=== PATIENT | male | born 1960 | race Caucasian/White ===

== ENCOUNTER 2019-02-26 07:55 | Outpatient (REF) | payer OTHER, SELFPAY ==
[2019-02-26 14:45] LABS: Anion Gap 12.8 mmol/L (3-11); BUN 18 mg/dL (7-18); CO2 24.2 mmol/L (21.0-32.0); CREATININE 0.78 mg/dL (0.70-1.30); Chloride 101 mmol/L (98-107); Glucose 106 mg/dL (70-100); Potassium 4.4 mmol/L (3.5-5.1); Sodium 138 mmol/L (136-145)
[2019-02-26 15:23] LABS: Calculated LDL 148; Cholesterol 210 mg/dL (50-200); HDL Cholesterol 46 mg/dL (40-60); Triglyceride 82 mg/dL (30-150)
== END 2019-02-26 08:15 ==
LOC: NCHCN 07:55
PROVIDERS: PCP Nurse Practitioner Family; Visit Provider Nurse Practitioner Family
DX: Z00.00 Encounter for general adult medical examination without abnormal findings (principal); Z13.220 Encounter for screening for lipoid disorders; Z13.228 Encounter for screening for other metabolic disorders
CPT/HCPCS: 80048; 80061; 83721

== ENCOUNTER 2020-01-06 09:16 | Outpatient (CLI) | payer OTHER, SELFPAY ==
--- NOTE | 2020-01-06 14:29 | DI.RAD_ITS ---
EXAM: XR KNEE LT 3V AP,LAT,LYNETTE CLINICAL HISTORY: KNEE PAIN LT, M25.562 TECHNIQUE: COMPARISON: No exams were available for comparison FINDINGS: Three views were obtained. There is an intramedullary shani with associated fixation screws in the fem ur. Alignment appears unchanged from 08/23/2017. There is moderate to severe narrowing of the carti laginous joint space of the lateral tibiofemoral joint and to a lesser degree the medial tibiofemoral joint. There are prominent marginal osteophytes at all 3 joints of the knee. There is subchondral sclerosis of the adjacent bones at the lateral tibiofemoral joint. IMPRESSION: DJD most marked involving lateral tibiofemoral joint where there is moderate to severe degenerative c hange. There is a probable small knee joint effusion.
== END 2020-01-06 09:36 ==
PROVIDERS: PCP Nurse Practitioner Family; Visit Provider Physician Assistant
DX: M25.562 Pain in left knee (principal); M17.12 Unilateral primary osteoarthritis, left knee; M25.462 Effusion, left knee
CPT/HCPCS: 73562

== ENCOUNTER 2020-01-23 10:44 | Outpatient (CLI) | payer OTHER, SELFPAY ==
--- NOTE | 2020-01-23 10:15 | DI.RAD_ITS ---
EXAM: XR FEMUR LT CLINICAL HISTORY: lt knee pain; s/p femoral nail 27 yrs ago TECHNIQUE: COMPARISON: CR XR KNEE LT 3V AP,LAT,LYNETTE from 01/06/2020 FINDINGS: Four views were obtained and show intramedullary shani in place in the femur. There is a healed mid fe moral fracture. Alignment appears essentially unchanged comparison with radiographs of the knee obta ined January 05. Moderate degenerative changes of the joints of the hip and knee are noted. IMPRESSION:
== END 2020-01-23 11:04 ==
PROVIDERS: PCP Nurse Practitioner Family; Visit Provider Physician Assistant
DX: M25.562 Pain in left knee (principal); M25.462 Effusion, left knee; M17.12 Unilateral primary osteoarthritis, left knee; M16.12 Unilateral primary osteoarthritis, left hip
CPT/HCPCS: 73552; 87070; 87205; 89051; 89060

== ENCOUNTER 2020-01-23 13:18 | Outpatient (REF) | payer OTHER, SELFPAY ==
[2020-01-23 14:11] LABS: Clarity CLEAR; Source L KNEE
[2020-01-23 14:13] LABS: Mononuclear Cells 97 % (0-0); Nucleated Cells 539 /MM3 (0-0); Polynuclear Cells 3 % (0-0)
== END 2020-01-23 13:38 ==
LOC: LBN 13:18
PROVIDERS: PCP Nurse Practitioner Family; Visit Provider Student in an Organized Health Care Education/Training Program
DX: M25.462 Effusion, left knee (principal)
CPT/HCPCS: 87070; 87205; 89051; 89060

== ENCOUNTER 2021-12-23 14:08 | Outpatient (CLI) | payer OTHER, SELFPAY ==
--- NOTE | 2021-12-23 12:00 | DI.RAD_ITS ---
Exam(s) XR KNEE LT 3V AP,LAT,LYNETTE EXAM: XR KNEE LT 3V AP,LAT,LYNETTE CLINICAL HISTORY: left knee pain, Effusion M25.462 TECHNIQUE: COMPARISON: CR XR KNEE LT 3V AP,LAT,LYNETTE from 01/06/2020 FINDINGS: Three views were obtained and show intramedullary fixation shani of the femur with [address]e distally. There is a small knee joint effusion. There is moderate to severe narrowing of medial and lateral tibiofemoral cartilaginous joint spaces. Moderate marginal osteophyte formation noted i nvolving all 3 joints of the knee. There appears to be mild medial subluxation of the femur on the t ibia. IMPRESSION: Moderate DJD of the knee. Small knee joint effusion. RADIATION DOSE DELIVERED: Total DLP
== END 2021-12-23 14:28 ==
LOC: DI 14:12
PROVIDERS: PCP Nurse Practitioner Family; Visit Provider Physician Assistant
DX: M25.462 Effusion, left knee (principal); M17.12 Unilateral primary osteoarthritis, left knee
CPT/HCPCS: 73562

== ENCOUNTER 2022-04-04 09:07 | Outpatient (CLI) | payer OTHER, SELFPAY ==
--- NOTE | 2022-04-04 08:45 | DI.RAD_ITS ---
Exam(s) XR STANDING ALIGNMENT EXAM: XR STANDING ALIGNMENT CLINICAL HISTORY: left knee DJD. TECHNIQUE: 2D digital imaging was performed. COMPARISON: CR XR FEMUR LT from 01/23/2020 FINDINGS: 3 views Long intramedullary shani in the left femur is noted transfixing healed midshaft fracture site. There are mild degenerative changes in the joints bilaterally. No hip fractures. Some degenerative change s noted in the left knee medial lateral compartments. Also mild medial subluxation of the left femor al condyles upon the tibial plateau. Similar findings are not seen in the opposite-right knee. Visualized ankles unremarkable. IMPRESSION: DATA REPOSITORY: RADIATION DOSE DELIVERED:
--- NOTE | 2022-04-04 08:45 | DI.RAD_ITS ---
Exam(s) XR KNEE LT 1V EXAM: XR KNEE LT 1V CLINICAL HISTORY: left knee DJD. TECHNIQUE: 2D digital imaging was performed. COMPARISON: CR XR KNEE LT 3V AP,LAT,LYNETTE from 12/23/2021 FINDINGS: Single lateral view Long intramedullary shani place distal aspect intercondylar region. Degenerative changes in the knee. IMPRESSION: DATA REPOSITORY: RADIATION DOSE DELIVERED:
== END 2022-04-04 09:08 | disposition home or self-care (01) ==
LOC: DIORS 09:07
PROVIDERS: PCP Nurse Practitioner Family; Referring Provider Nurse Practitioner Family; Visit Provider Physician Assistant
DX: M17.12 Unilateral primary osteoarthritis, left knee (principal)
CPT/HCPCS: 73560; 77073

== ENCOUNTER 2022-04-25 02:41 | Outpatient (CLI) | payer OTHER, SELFPAY ==
[2022-04-25 09:43] LABS: Anion Gap 10.8 mmol/L (3-11); BUN 13 mg/dL (7-18); CO2 29.2 mmol/L (21.0-32.0); CREATININE 1.1 mg/dL (0.70-1.30); Calcium 9.2 mg/dL (8.5-10.1); Chloride 96 mmol/L (98-107); Glucose 110 mg/dL (74-106); Sodium 136 mmol/L (136-145)
[2022-04-25 12:11] LABS: Source Nasal/Nares
[2022-04-25 12:35] LABS: HCT 46.9 % (40.0-50.0); HGB 16.4 g/dL (13.5-17.5); MCH 33.7 pg (27.0-33.0); MCV 96 fL (80-95); MPV 9.2 fL (8.0-11.0); Platelet Count 234 10^3/uL (130-400); RBC 4.87 10^6/uL (4.36-5.78); RDW 11.5 % (11.8-14.1); RDW-SD 41.1 fL; WBC 5.61 10^3/uL (4.4-10.8)
[2022-04-25 18:52] LABS: COVID-19 PCR Negative (Negative)
== END 2022-04-25 02:42 | disposition home or self-care (01) ==
LOC: LBO 02:41
PROVIDERS: PCP Nurse Practitioner Family; Visit Provider Student in an Organized Health Care Education/Training Program
DX: M25.562 Pain in left knee (principal); M17.12 Unilateral primary osteoarthritis, left knee; Z20.822 Contact with and (suspected) exposure to COVID-19; Z01.818 Encounter for other preprocedural examination; Z01.812 Encounter for preprocedural laboratory examination
CPT/HCPCS: 36415; 80048; 85027; 86850; 86900; 86901; 87635

== ENCOUNTER 2022-04-27 06:30 | Observation (INO) | payer OTHER, SELFPAY ==
[2022-04-27] VITALS (17 sets, daily range): BP systolic 85–135; BP diastolic 50–86; PULSE 49–65; RESP 16–27; TEMP 35.5–36.9; O2SAT 92–98; BMI 28.9
--- NOTE | 2022-04-27 06:41 | W.ANESPRE ---
General Info Date of Service Date Performed: 04/27/22 Height: 5 ft 8 in Weight: 86.268 kg Body Mass Index (BMI): 28.9 Surgical Procedure: Operation Date: 04/27/22 11:40 Proposed Procedure Side Surgeon p Knee Total Arthroplasty OrthAlign Left Jens Gregg MD s Hardware Removal of Femur Left Jens Gregg MD Meds Allergies and Home Medications Allergies Allergy/AdvReac Type Severity Reaction Status Date / Time tramadol Allergy Skin Rash Verified 04/27/22 09:03 kiwi Allergy Unknown per Uncoded 04/27/22 09:03 pt.throat feels funny Home Medication Medication Instructions Recorded antiarthritic combination no.2 900 900 mg PO DAILY 01/05/22 mg tablet (glucosamine-chondroitin) cholecalciferol (vitamin D3) 10 10 mcg PO DAILY 01/05/22 mcg (400 unit) capsule magnesium oxide 400 mg PO DAILY 01/05/22 omega 1-vbd-voc-fish oil 300 1 cap PO DAILY 01/05/22 mg-1,000 mg capsule turmeric 400 mg capsule 400 mg PO DAILY 01/05/22 vitamin B complex (B 1 tab PO DAILY 01/05/22 Complex-Vitamin B12 tablet) milk thistle 150 mg capsule 300 mg PO DAILY 01/12/22 phytonadione (vitamin K1) 5 mg 5 mg PO DAILY 01/12/22 tablet lidocaine 4 % topical patch 1 patch topical DIRECTED 04/26/22 (Lidocaine Pain Relief) melatonin 12 mg disintegrating 12 mg PO HS 04/27/22 tablet Current Visit Medications: Current Medications Generic Name Dose Route Start Last Admin Trade Name Beatriz PRN Reason Stop Dose Admin Acetaminophen 1,000 mg 04/27/22 06:00 Acetaminophen 500 Mg Tab PO PREOP ISIDRO Celecoxib 400 mg 04/27/22 06:00 Celecoxib 200 Mg Cap PO PREOP ISIDRO Gabapentin 300 mg 04/27/22 06:00 Gabapentin 300 Mg Cap PO PREOP ISIDRO Tranexamic Acid 1,000 mg/ 60 mls @ 360 mls/hr 04/27/22 06:00 Sodium Chloride IVPB 04/27/22 16:00 PREOP ISIDRO Ringer's Solution 1,000 mls @ 80 mls/hr 04/27/22 06:00 IV 05/26/22 23:59 INFUSION ISIDRO Cefazolin Sodium/Dextrose 2 gm in 50 mls @ 100 mls/hr 04/27/22 06:00 Ancef Duplex IVPB 05/26/22 23:59 PREOP ISIDRO IV Miscellaneous Supplies 1 each 04/27/22 06:00 Iv Access IV 05/26/22 23:59 DIRECTED ISIDRO Sodium Chloride 0 ml 04/27/22 06:00 Normal Saline Flush 10 Ml Syr IV 05/26/22 23:59 PRN PRN Sodium Chloride 0 ml 04/27/22 06:00 Normal Saline 10 Ml Vial IJ 05/26/22 23:59 DIRECTED PRN Sterile Water 0 ml 04/27/22 06:00 Water,Injection,Sterile 10 Ml Vial IJ 05/26/22 23:59 DIRECTED PRN PFSH Active Problems Active Problems: Problem Status Onset Code Left knee DJD M17.12 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 Effusion, left knee M25.462 Medical History Medical History Biceps tendon tear Hyperlipidemia Surgical History Surgical History Hx of elbow surgery Status post fracture of femur ~27 years ago Intramedullary shani Tobacco Smoking/Tobacco Use Status: Former Tobacco Use Substance Use Substance use: Daily Substance use type: marijuana Vital Signs and Lab Results Vital Signs Most Recent Vital Signs in EMR: Temp Pulse Resp BP Pulse Ox 36.9 C 60 18 135/86 96 04/27/22 08:46 04/27/22 08:46 04/27/22 08:46 04/27/22 08:46 04/27/22 08:46 Lab Results Blood Type / Crossmatch: Patient ABO/Rh O Positive 04/25/22 Antibody Screen NEGATIVE 04/25/22 Complete Blood Count: White Blood Count 5.61 10^3/uL (4.4-10.8) 04/25/22 09:21 Red Blood Count 4.87 10^6/uL (4.36-5.78) 04/25/22 09:21 Hemoglobin 16.4 g/dL (13.5-17.5) 04/25/22 09:21 Hematocrit 46.9 % (40.0-50.0) 04/25/22 09:21 Platelet Count 234 10^3/uL (130-400) 04/25/22 09:21 Complete Metabolic Panel: Sodium Level 136 mmol/L (136-145) 04/25/22 09:21 Potassium Level 4.0 mmol/L (3.5-5.1) 04/25/22 09:21 Chloride Level 96 mmol/L (98-107) L 04/25/22 09:21 Carbon Dioxide Level 29.2 mmol/L (21.0-32.0) 04/25/22 09:21 Blood Urea Nitrogen 13 mg/dL (7-18) 04/25/22 09:21 Creatinine 1.1 mg/dL (0.70-1.30) 04/25/22 09:21 Estimated GFR/1.73 m2 >= 60.00 (mL/min/1.73m2) 04/25/22 09:21 Calcium Level 9.2 mg/dL (8.5-10.1) 04/25/22 09:21 Glucose Level 110 mg/dL (74-106) H 04/25/22 09:21 Liver Function Panel: No Data to Display Coagulation Panel: No Data to Display Cardiac Panel: No Data to Display Arterial Blood Gas: No Data to Display Venous Blood Gas: No Data to Display Pancreas Panel: No Data to Display Thyroid Panel: No Data to Display Infectious Disease: Coronavirus (COVID-19)(PCR) Negative (Negative) 04/25/22 09:35 Coronavirus 2019 Source Nasal/Nares 04/25/22 09:35 Blood Cultures: No Data to Display Toxicology Panel: No Data to Display Anesthesia Assessment and Plan Anesthesia History Personal History: No History of Anesthesia Complications Family History: No Family History of Anesthesia Complications Exercise Tolerance Exercise Tolerance: Metabolic Equivalents>4 Cardiac & Pulmonary Exam Cardiac Exam: Normal S1/S2 Heart Sounds Pulmonary Exam: Clear Bilateral Breath Sounds Implantable Cardiac Device Does patient have a Pacemaker or an ICD?: No Airway Exam Known Difficult Airway: No Mallampati Class: 3 Mouth Opening: Narrow (< 3cm) Thyromental Distance: Greater than 3 cm Neck Range of Motion: Full ROM Neck Circumference: Normal Teeth Condition: Normal Dentition ASA Classification ASA Score: ASA 2 Emergency Case?: No NPO Status NPO Status: NPO Clears >2 hours, Solids >8 hours Anesthesia Plan Resuscitation Status: Full Code Anesthesia Technique: General Anesthesia Airway Planned: Endotracheal Tube Pain Management: Surgeon and patient request nerve block Monitors Used: Standard Monitors Preoperative Comments:: 62 yo male for femur screw/shani removal and total knee left. Sig PMHx: former smoker (1979), cannabis, denies major. Lateral for femur removal then supine for TKA. Discussed risks, benefits, and alternatives of spinal vs general, plan GAETT with adductor canal block.
[2022-04-27] MEDS: Lactated Ringers 1,000 ML 80 ML IV (09:31)
[2022-04-27] MEDS: Celecoxib 200 MG CAP 400 MG PO (09:55)
[2022-04-27] MEDS: Acetaminophen 500 MG TAB 1000 MG PO ×2 (09:56→19:45)
[2022-04-27] MEDS: Gabapentin 300 MG CAP PO ×2 (09:56→22:28)
--- NOTE | 2022-04-27 11:11 | W.ANESNERVE ---
Nerve Block Single Injection Procedure Date and Time Date Performed: 04/27/22 Procedure Start: 11:05 Location Where Procedure Performed Procedure Location: Day Surgery Unit Reason Performed: Postoperative Analgesia Requesting Provider: Jens Gregg Timeout Performed Timeout Performed: Yes Monitoring Used ECG, Blood Pressure and SpO2 Sterility Sterility: Hand Hygiene, Surgical Cap, Surgical Mask, Sterile Gloves and Chlorhexidine Sedation Given During Procedure Sedation Given (Indicate Dose Given): Versed IV Dose:: 2 mg Patient Mental Status Patient Mental Status: Awake Nerve Block 1st Nerve Block: Laterality: Left Block Type: Adductor Canal Needle / Catheter Used: 100mm SonoPlex II Local Anesthetic Bolus (Indicate Dose Given): Lidocaine used for local infiltration of skin and Bupivacaine 0.375% Dose:: 10 mL Additives (Indicate Dose Given): None Ultrasound: Sterile probe cover and gel used Ultrasound Image Saved?: Yes Nerve Stimulator: Not Used Paresthesia: None Procedure Tolerated: No Complications Procedure Outcome: Successful Performed By: Vasu Wood
[2022-04-27] MEDS: ceFAZolin 2 GM/50 ML BAG IVPB (11:28)
--- NOTE | 2022-04-27 13:36 | DI.RAD_ITS ---
Exam(s) XR FEMUR LT EXAM: XR FEMUR LT CLINICAL HISTORY: DJD LEFT KNEE, S/P LEFT FEMORAL CA TECHNIQUE: 2D and realtime digital imaging was performed. COMPARISON: No exams were available for comparison FINDINGS: C-arm fluoroscopy was utilized by Dr. Gregg. Please see Dr. Gregg procedure note. IMPRESSION: RADIATION DOSE DELIVERED: blair Pacheco=16.25 mGy
[2022-04-27] MEDS: Tranexamic Acid 1,000 MG/10 ML VIAL 1000 MG (14:00)
[2022-04-27] MEDS: ePHEDrine 25 MG/5 ML Syringe IVP ×2 (16:23→16:34)
--- NOTE | 2022-04-27 17:18 | W.ANESPOSTOP ---
Postoperative Evaluation Date, Time and Location Date Performed: 04/27/22 Time Performed: 17:18 Patient Location: PACU Vital Signs Most Recent Imported Vital Signs: Most Recent Vital Signs Temp Pulse Resp BP Pulse Ox 36.4 C L 59 L 26 H 126/54 L 97 04/27/22 17:15 04/27/22 17:15 04/27/22 17:15 04/27/22 17:15 04/27/22 17:15 Pain Score Most Recent Pain Score: Most Recent Pain Score Pain Level 0 04/27/22 17:15 Assessment Mental Status: Arousable with meaningful communication Airway and Respiratory Function: Patent airway with normal (patient baseline) respiratory exam Cardiovascular Function: Hemodynamically Stable Hydration Status: Adequately Hydrated Nausea & Vomiting: No Nausea or Vomiting Pain: Pain is tolerable per patient Peripheral Nerve Block: Regional nerve block not resolved at time of post operative discharge
[2022-04-27] MEDS: ceFAZolin 1 GM/50 ML BAG IVPB (18:17)
[2022-04-27] MEDS: Aspirin E.C. 81 MG TABEC PO (19:44)
[2022-04-27] MEDS: Celecoxib 200 MG CAP PO (19:46)
--- NOTE | 2022-04-27 20:17 | ROE_ITS ---
Date of service: 04/27/22 Time of Service: 15:30 Operative Note Operative Note DATE OF PROCEDURE: 04/27/22 PRE-OP DIAGNOSIS: Left knee posttraumatic arthritis, retained hardware left femur POST-OP DIAGNOSIS: same PROCEDURE: Left Total Knee Replacement with Intraoperative Navigation, attempted hardware removal left femur SURGEON: Jens Gregg FRAME STRIPPER AND CRUSHER: Marbella Sebastian ANESTHESIA TYPE: General LMA/ETT and Spinal Refer to Anesthesia Record ESTIMATED BLOOD LOSS: 250 PATHOLOGY: none sent TOURNIQUET TIME: 0 COMPLICATIONS: None Patient was transported to: PACU Patient's condition: stable Implants: 1. Depuy Attune Cementless Cruciate Retaining Femoral Component, Size 6 2. Depuy Attune Cemented Rotating Platform Tibial Component, Size 5 3. Depuy Attune 6x10 CR/RP Poly 4. Depuy Attune Patellar Component, Size 38 Indications: I have seen Manoj in clinic for symptoms of LEFT knee arthritis, confirmed with radiographic findings. Manoj has exhausted nonoperative methods and was having significant limitations in daily function and desired better function and less pain. I discussed the technical details of a knee replacement. This was complicated by the very distal location of his femoral nail. This femoral nail was placed more than 30 years ago and was determined to be a [employer] femoral nail. Based on calculations on the computer the tip of the nail was going to interact with the femoral cut and therefore would need to be removed. I explained the risks of the procedure to include, but not limited to, bleeding, infection, pain, stiffness, fracture, damage to nerves and vessels, damage to muscles and tendons, loosening, need for repeat procedure, blood clot and cardiopulmonary demise. Despite these risks, Manoj elected to proceed. Findings: I was able to engage the top of the nail with the extraction device and remove the distal interlocking screws without difficulty. The top of the femoral nail was cleared of any debris and was able to be extracted approximately 1-1/2 cm. However, it then stopped. Multiple attempts using different techniques and tools were utilized to attempt extraction of the nail. However, it was unsuccessful. I was unable to advance the nail distally or move it proximally. It was sitting just proximal to the tip of the greater trochanter but was not impinging on the overlying abductor muscles. Therefore, I left the nail in this location and close the hip and proceed to the knee replacement. Within the knee, there was significant signs of arthritis throughout. Procedure Description: Manoj was greeted in the preoperative holding area where the correct side was identified and marked. The consent was reviewed with the patient and signed. The history and physical was updated. All questions were answered. Preoperative medications were administered: Acetaminophen 1000mg, Celebrex 400mg, and Gabapentin 300mg. An adductor canal block was then administered by the anesthesia team in the PACU. Ernesto was taken back to the operating room. A general anesthestic was then administered. He was then positioned onto the right lateral decubitus position. He was secu red in this position with hip positioners attached to the bed. All bony prominences well-padded including style leg and bilateral arms. In this position we had access to the lateral aspect of the proximal femur and hip. The left leg was then prepped with ChloraPrep and draped in a standard fashion. A timeout to confirm correct identity, side and site, procedure, allergies, anesthesia, and medical concerns was performed. Utilizing fluoroscopy I marked the location of the distal screws and also confirmed appropriate starting point for access to the nail. I did not use his previous incision which was quite posterior. Starting at the level of the hip, I made a 5 cm incision just proximal to the tip of the greater trochanter. The skin was incised sharply followed by the gluteus fascia. The muscles of the abductor tendons were split bluntly leaving them attached to the distal greater trochanter. Through the split I was able to palpate what appeared to be the nail edge. Using a rongeur and osteotome I was able to free off some soft tissue/is able to palpate metal. I then inserted the [employer] distractor system into the top of the nail. Using fluoroscopy I was able to lined this up appropriately in 2 planes and then advanced the screw threads into the top of the nail. This got excellent purchase into the top of the knee also shows rotating the entire leg. I then worked distally removing the 2 interlocking screws without difficulty. At this point, I attached the extraction system completely and started doing back slaps to remove the nail. The nail advanced about 1 to 1-1/2 cm with some moderate effort. However, after this initial gain the nail stopped moving. Fluoroscopy was utilized to evaluate for any potential areas of hold against the nail. The nail was palpable proximally and therefore there is no soft tissue or bony impingement proximally. There is no remaining screws. There was significant narrowing of his femur from the level of the fracture moving proximally. I also utilized a vice disposition clerk with a backslapping device as well as a heavy mallet. Despite these attempts, the nail would not move. Given the risk of fracture I then attempted to advance the nail distally trying to free up any attachments or at least make some more room. However, it would not advance distally. Once again, with concern for fracture at this point I aborted nail extraction. The left hip was thoroughly irrigated. The soft tissues were injected with a mixture of the RE CK cocktail. The gluteus fascia was closed with a #1 Vicryl. The deep tissues were closed with 2-0 and 0 Vicryl followed by 4-0 Monocryl at the skin. This was further reinforced with skin glue, Steri-Strips, and a Mepilex dressing. The distal incisions were also closed with 2-0 Vicryl followed by subcuticular Monocryl, skin glue. The advancement of the nail 1 to 1-1/2 cm providedthat I was confident the knee replacement would be unhindered. Therefore, we continued with a knee replacement at this time. Drapes and equipment were taken down from this position. He was then placed into the supine position on the operating room table. All bony prominences were well padded. Prophylactic antibiotics in the form of Cefazolin were administered. 1g of Tranxemic Acid was given intravenously within 30 minutes of incision. The left leg was then prepped with Chloraprep and draped in a standard fashion with impervious stockinette. A second prep with Chloraprep was performed prior to application of Iodine impregnated skin protection. With the knee in some flexion, a midline incision was made overlying the knee. Full thickness skin flaps were raised once the extensor mechanism was encountered. These were raised medially and laterally. Any bleeding was controlled with electrocautery. Once the extensor mechanism was fully exposed, a medial parapatellar arthrotomy was performed in a flexed position. All bleeding from the arthrotomy and the geniculate arteries was coagulated. A medial subperiosteal peel was performed with electrocautery to the midcoronal plane. Due to the significant varus deformity the entire medial tibial plateau was exposed. The fat pad was removed while keeping the patellar tendon protected. The anterior distal femur synovium was removed for later visualization. The ACL and PCL were resected and the anterior horn of the lateral meniscus was transected. The knee was then flexed with the patella everted. Large osteophytes from the tibia were removed. Large osteophytes from the femur were removed. There was some hypoplasia of the lateral femoral condyle and any remnant cartilage of the medial femoral condyle was removed for appropriate thickness. A single starting pin was then placed 1cm anterior to the PCL insertion and the notch in the direction of the femoral head. The OrthoAlign device was applied over the pin. It was oriented to be in line with the epicondylar axis and the trochlear groove. It was then pinned into place. The navigation computer was then turned on and calibrated. The distal femur cut was set at 0 degrees varus/valgus and 2.5 degrees flexion. The distal femur cutting guide then was positioned for a 9mm cut. The distal femur was cut with an oscillating saw while protecting the soft tissues. The tibia was then addressed. The OrthoAlign device was placed over the tibial tubercle and medial tibia and secured into position. Once again, OrthoAlign was calibrated and then set for a 1 degree varus cut and 5 degrees of posterior slope. With this locked into position, the cut thickness stylus was used to assess cut thickness. The medial side, most involved side, was set for a 4mm cut. This was then held in position and pinned into place with 2 additional pins and a cross pin for stability. The medial and lateral collateral ligaments were protected and the cut was performed. With this completed, it was assessed and noted to be of appropriate dimensions. The guide and OrthoAlign was removed. A spacer block was inserted and the knee was brought into extension. The 8mm spacer block provided full extension, without hyperextension and with stability of both the medial and lateral collateral ligaments was assessed. The pins from the femur and the tibia were then removed. The distal femur was then sized. The anterior stylus was placed onto the lateral ridge of the anterior femur. This indicated a size 6 femur. The external rotation of the guide was adjusted to 0 degrees to match the epicondylar axis, perpendicular to Francesca?s line. The 4-in-1 cutting guide was the placed. The posterior medial femur cut was evaluated and appeared of good thickness. The spacer block was inserted underneath the cutting guide and stability was confirmed in 90 degrees of flexion. An andriy wing was used to confirm appropriate position of the anterior cut to avoid notching. This cutting guide was ensured to be flush on the cut surface and then pinned into place with headed pins. While protecting the soft tissues, quad tendon, and collateral ligaments, the anterior and posterior cuts were performed with a saw. The central two pins were removed and the posterior and anterior chamfers were cut next. The notch-cutting guide was placed. This was pinned to lateralize the femoral component as much as possible while keeping it flush on the cut surface. This was then pinned into position. A reciprocating saw was used to make the notch cut. A rasp smoothed the cut surfaces. The medial and lateral menisci were removed. A trial femoral component was then inserted, impacted down to the cut surfaces, and the lug holes were drilled. A provisional trial tibial component was placed and the knee was brought through range of motion. The polyethylene was trialed until there was good flexion and extension with excellent stability to the medial and lateral collaterals. The patella was tracking without thumbs. A size 10mm polyethylene component provided the best range of motion and stability with less than 2mm gapping with medial and lateral stress and full extension without significant hyperextension. The tibial cut surface was fully exposed. The tibia was then sized as a 5. The tibia had been previously marked during trialing to correspond to the center of the tibial component to help with rotation. The trial was aligned to this jn, approximately rotated to the medial 1/3rd of the tibial tubercle. The trial was pinned into place. The tibia was prepared with a reamer and a keel punch and lug holes. The knee was then brought into extension and the patella was measured as 28mm. Using the patellar clamp and cut guide, this was resected to a flat surface with at least 13mm of thickness remaining. The size 38 patella fit the best. This was oriented and then clamped into position. The lugs were drilled. The trial components were removed. The final components were opened on the back table. The periosteal and capsular tissues, especially posteriorly, around the knee were then systematically injected with a periarticular cocktail consisting of 246mg of Ropivacaine, 0.5mg of Epinephrine, 0.08mg of Clonidine, and 30mg of Ketorolac, diluted to 100cc. On the back table, with the implants opened, the cement was mixed. One batch of high viscosity cement was prepared with vacuum assistance. After the cement was ready a small amount was placed on the cut surface of the patella and the patellar button was clamped into position and held. While the cement was hardening, the cementless knee components were placed. Starting with the tibial component, the tibia was subluxed anteriorly and the lug holes of the component were lined up. The tibia was then impacted with an impactor and mallet until the tibial component was in contact with the tibia. The bone appeared quite good throughout the case with the tibial bone seem to be more porous than the femoral bone. On insertion of the tibial component the tibial component compressed into the bone about 1 mm. It did not have excellent purchase and I was able to mobilize the component. Therefore, it was removed and converted to a cemented. A cementless size 5 implant was opened on the back table and another batch of medium viscosity cement was mixed. Once this was ready for application it was coated on the backside of the tibial component and on the ti bial cut surface. This tibial component was then inserted in appropriate position and excess cement was removed. The final polyethylene component was inserted. Then, the femoral component was inserted. The lug holes were aligned and the component was impacted into position. The knee was irrigated with Surgiphor Betadine solution. This was allowed to sit in the knee for 3 minutes and then it was thoroughly irrigated out with saline. After the cement had finally cured, approximately 15min, the clamp was removed from the patella and the knee was taken through range of motion. The patella was tracking with a no-thumbs technique. The capsule was then reapproximated with a No. 1 Vicryl at multiple locations. The capsule was finally closed with a No. 2 Stratafix, barbed suture. Deep tissues were then reapproximated with 0 Vicryl and 2-0 Vicryl. The skin was closed with a running 3-0 Monocryl in a subcuticular fashion. This was reinforced with skin glue. A Mepilex silver dressing was applied along with a [id number] MICHELA wrap. A CryoCuff was applied. Manoj was transferred to the hospital bed without difficulty an suffering no apparent complication. Manoj has a good prognosis. Physical therapy will start today and without restrictions, weight-bearing as tolerated. Aspirin 81mg BID will be used for DVT prophylaxis.
[2022-04-27] MEDS: Melatonin 3 MG TAB 12 MG PO (22:28)
[2022-04-28 00:31] VITALS: BP 107/68; PULSE 65; RESP 16; TEMP 35.9; O2SAT 99
[2022-04-28] MEDS: ceFAZolin 1 GM/50 ML BAG IVPB ×2 (01:30→10:13)
[2022-04-28 06:39] VITALS: BP 101/63; PULSE 77; RESP 16; TEMP 35.6; O2SAT 98
[2022-04-28] MEDS: oxyCODONE 5 MG TAB PO ×2 (06:41→10:27)
[2022-04-28 08:25] VITALS: BP 108/71; PULSE 55; RESP 16; TEMP 35.7
[2022-04-28] MEDS: Celecoxib 200 MG CAP PO (08:27)
[2022-04-28] MEDS: Acetaminophen 500 MG TAB 1000 MG PO (08:29)
[2022-04-28] MEDS: Pantoprazole 40 MG TABCR PO (08:29)
[2022-04-28] MEDS: Aspirin E.C. 81 MG TABEC PO (08:29)
--- NOTE | 2022-04-28 08:40 | PT.INIE ---
Date of service: 04/28/22 Time of Service: 08:40 PT Notes Visit Reasons: Left Femur Removal Of Hardware and Left TKA Physical Therapy Inpatient Initial Evaluation Date: 04/28/2022 Referring Doctor: SCOTT Aden PT Orders: PT CONSULT: S/p Ortho surgery Precautions: WBAT on L LE with AD. Patient Profile/Admitting Diagnosis: Derrick is a 62-year-old male with past medical history significant for L knee posttraumatic arthritis, S/P left femoral nail fixation 27 years ago and MCL injury in 2017 who is status post left total knee arthroplasty with attempted IM hardware removal from the left femur on postoperative day 1. PMHX: All Active Problems?(Updated 01/12/22 @ 15:10 by SCOTT Watson) Effusion, left knee (Acute) Aspiration and injection: 01/23/20 Internal derangement of left knee (Acute) Left knee DJD (Chronic) Steroid injection: 01/12/2022 Aspiration and injection: 01/23/20 Medical History?(Updated 01/12/22 @ 15:10 by SCOTT Watson) Hyperlipidemia Surgical History? Status post fracture of femur ~27 years ago Intramedullary shani Social History/Home Situation: Lives with in a private home with no steps to enter. Bedroom is on the second floor however he states that he can manage on the min floor if he needs to. Independent with all aspects of ADLs prior to surgery. 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 Equipment Owned/DME: [employer] Subjective: Agreeable to PT consult. States that he walked to his bedside chair with nursing staff using his walker early this morning with minimal pain, his left hip hurting more than his L knee. Denies chest pain, headache, and lightheadedness throughout. Okay with walking despite not having had any breakfast yet. Objective: General Observation: Seated on bedside chair. MICHELA wraps to Mental Status: Alert and oriented as to person, place, time, and purpose. Able to pay attention, focus, and respond appropriately. Pain: 5-6/10 in L hip, minimal on the L knee at 3-4/10 Vital Signs: WNL as closley monitored by nursing staff ROM: Right Lower Extremity: Hip flexion WFL. Hip abduction WFL. Knee flexion WFL. Ankle dorsiflexion WFL. Ankle plantarflexion WFL. Left Lower Extremity: Hip flexion WFL. Hip abduction WFL. Knee flexion 10 degrees to 110 degrees. Knee extension -10 degrees. Ankle dorsiflexion WFL. Ankle plantarflexion WFL. Strength: Right Lower Extremity: Hip flexors 5/5. Hip abductors 5/5. Knee flexors 5/5. Knee extensors 5/5. Ankle dorsiflexors 5/5. Ankle plantarflexors 5/5. Left Lower Extremity: Hip flexors 4-/5. Hip abductors 4-/5. Knee flexors 3-/5. Knee extensors 3-/5. Ankle dorsiflexors 4/5. Ankle plantarflexors 4/5. Sensation: Intact as to pain adn light pressure in B LE Bed Mobility/Transfers: Sit to stand supervision using FWW Stand to sit supervision using FWW Bed to reclining chair supervision using FWW Reclining chair to bed supervision using FWW Gait: Instructed patient with level surface ambulation of 450 feet with FWW requiring stand by assist with step-to gait pattern. Gait antalgic. Pain subsided with rest. Balance: Static Sitting: Normal Dynamic Sitting: Normal Static Standing: Fair Dynamic Standing: Fair Special Tests: Mobility Limitations Standardized Measure [facility] 6 clicks Basic Mobility Inpatient Short Form: Raw Score: 23 CMS Score: 11% deficit Informed Consent/Education: Patient was instructed in purpose of PT consult and plan of care. Agreeable to proceed with established PT POC to achieve personal goals. Assessment: Patient is able to perform bed mobility, transfers, and ambulation with FWW with stand by assist only. Patient presents with clinical signs and symptoms consistent with current/admitting diagnoses that have resulted to mobility limitations as demonstrated by the following impairment level findings: 1. Decreased strength to L hip and knee major muscle groups 2. Impaired standing balance 3. Impaired activity tolerance 4. Limitation of joint range of motion in L knee Impairments are contributing to the following functional limitations: 1. Difficulty with ambulation without assistive device 2. Increased completion time for mobility ADL performance Patient is assessed as a [id number] mdoerate complexity based on the following: History: 62-year-old male with past medical history as indicated above Examination: Demonstrable impairment in strength, balance, and mobility level with underlying impairments and functional limitations as exhibited above as well as deficit score of 11% utilizing the [facility] Mobility Inpatient Short Form Presentation: Evolving Decision Makin moderate complexity Goals: Goals X1 week 1. Supine-Sit independent 2. Sit-Supine independent 3. Sit-Stand independent 4. Stand-Sit independent with FWW 5. Bed-Chair independent with FWW 6. Chair-Bed independent with FWW 7. Independent gait on level surface with use of FWW for at least 500 feet without report of pain nor dyspnea 8. Independent with home exercise program 9. Good static and dynamic standing balance/tolerance Plan of Care/Treatment Plan: 1-2x/day, 7 days/week x 1 week. Plan of care has been reviewed with the ENERGY EFFICIENT SITE MANAGER providing the service under Physical Therapy direction. Initiate Physical Therapy intervention for pain management as needed, strengthening, bed mobility, transfers, gait, stairs, balance training, and use of assistive device. DISCHARGE RECOMMENDATIONS: [] Home with no services [] [] Home with services [specify] [X] Home with outpatient PT. Home when medically cleared by orthopedic surgeon. Patient will benefit from outpatient PT services in order to maximize functional outcomes and regain independent community ambulation without an assistive device. [] SNF for continued rehabilitation [] [] [facility] [] [] SNF versus LTC based on ability to participate and progress [] TREATMENT CODE/TIME: 14972 x 15 minutes, 71269 x 14 minutes beginning at 8:40 AM. Thank you for the opportunity to participate in the care of this patient. Loraine Esparza PT, DPT, CLT [facility] [place], [place]
--- NOTE | 2022-04-28 09:08 | W.PM.DS.N ---
Date of service: 04/28/22 Time of Service: 07:30 DS: Diagnosis Discharge Diagnosis (1) Left knee DJD: Status: Chronic Discharge Plan Disposition Patient Disposition: HOME Condition: Good Discharge Details Reason For Visit: Left Femur Removal Of Hardware and Left TKA Admit Date/Time: 04/27/22 06:30 Admit Provider: Jens Gregg Attending Provider: Jens Gregg Primary Care Provider: Yaritza Daily Hospital Course Hospital Course: Patient was admitted to the medical/surgical floor following the procedure. The surgery was tolerated well without any notable medical, surgical, or anesthetic complications. Mobilization began postoperatively. He was voiding spontaneously. Vitals were stable. Physical therapy worked with the patient and was cleared for discharge home. No acute medical issues. Pain was controlled on oral regimen. Home Meds and New Rx's Prescriptions: New celecoxib 200 mg capsule 200 mg PO BID PRN (Reason: pain) Qty: 60 1RF aspirin 81 mg tablet,delayed release (DR/EC) 81 mg PO BID Qty: 60 0RF acetaminophen 500 mg tablet 1,000 mg PO Q8H PRN (Reason: pain) Qty: 90 3RF pantoprazole 40 mg tablet,delayed release (DR/EC) 40 mg PO DAILY Qty: 30 0RF gabapentin 300 mg capsule 300 mg PO QHS Qty: 14 0RF oxycodone 5 mg tablet 5 mg PO Q4H Qty: 18 0RF Continued phytonadione (vitamin K1) 5 mg tablet 5 mg PO DAILY milk thistle 150 mg capsule 300 mg PO DAILY Rx Instructions: give with meal/snack cholecalciferol (vitamin D3) 10 mcg (400 unit) capsule 10 mcg PO DAILY magnesium oxide 400 mg magnesium capsule 400 mg PO DAILY turmeric 400 mg capsule 400 mg PO DAILY glucosamine-chondroitin 900 mg tablet 900 mg PO DAILY omega 1-rwz-oti-fish oil 300-1,000 mg capsule 1 cap PO DAILY vitamin B complex [B Complex-Vitamin B12] Tablet 1 tab PO DAILY lidocaine [Lidocaine Pain Relief] 4 % Adhesive Patch,Medicated 1 patch TOPICAL DIRECTED melatonin 12 mg Tablet,Disintegrating 12 mg PO HS Discharge Instructions Additional Instructions: Total Knee Discharge Instructions Activity: The most important activity is to walk. You should try to take short walks a few times a day. It is important that when resting you work on keeping the knee straight. Avoid putting a pillow behind the knee as this will encourage flexion. Work on range of motion exercises as provided by Physical Therapy. - Start outpatient physical therapy within 2 weeks. - You should wear the ENRIQUE hose on both legs for 2 weeks. You may remove these at night. You may also use any compression sock in place of the ENRIQUE hose. - Utilize [employer] to review exercises, see videos on exercises and obtain basic information pertaining to your surgery and your recovery. Dressing: Remove the Mike wrap by 2 days after your surgery and put on the ENRIQUE stocking given to you from the hospital. Keep the surgical dressing (underneath the MIKE wrap) and at the hip in place for at least one week. After the first week it may be removed and replaced with light gauze and tape or nothing. The wound and dressing may get wet after 3 days but avoid soaking the dressing or otherwise it will need to be changed. Many people prefer covering the dressing with cling wrap (saran wrap) to minimize it from getting soaked. If it gets wet, just pat dry. If it starts to peel off then it will need to be changed. Medications: - You should take Tylenol and anti-inflammatory Celebrex as your primary pain control medications. If the Celebrex is too expensive or not covered, please call the office for another alternative (Advil/Ibuprofen or Naproxen/Aleve) - You have been prescribed a stronger pain medication Oxycodone for breakthrough pain, take as needed as prescribed. - You have also been prescribed a stomach acid reduction agent Pantoprozole to help reduce stomach acid and reflux. - You have been prescribed Gabapentin to take at night for restlessness and nerve pain. - You will be taking Aspirin 81mg twice a day for DVT prevention unless instructed otherwise. - If you have constipation you should take Colace or Miralax (both [id number]). It takes most people 3-4 days to have a bowel movement. Follow-up: 2 weeks If you have any acute concerns or questions, please do not hesitate to contact the office at [phone]. You may contact Dr. Gregg with any questions after hours through the hospital at [phone] or on his cell phone at [phone]. Referrals: Jens Gregg MD [ [facility] STAFF PHYSICIAN] - Activity:: Activity as Tolerated Equipment/Supplies:: Walker Diet:: As Tolerated Discharge Orders Discharge Orders: Discharge Order (Routine); Ordered 04/28/22 Ordered By: Jens Gregg DS: Summary Time Spent with Patient providing and/or coordinating discharge services: Less than 30 minutes Status at Discharge Functional status at discharge: uses cane/walker Overall status at discharge: patient is progressing back to baseline Mental Status: mental status grossly normal Speech and Movement: speech and movement normal Mood: congruent mood Affect: normal affect Exam Psych Mental Status: mental status grossly normal Speech and Movement: speech and movement normal Mood: congruent mood Affect: normal affect DS: Data Vitals/I&O Vitals and I&O: Vital Signs Temperature 35.7 C L 04/28/22 08:25 Temperature Source Tympanic 04/28/22 08:25 Pulse 55 L 04/28/22 08:25 Pulse Rhythm Regular 04/27/22 23:32 Respiratory Rate 16 04/28/22 08:25 Respiratory Effort Non-Labored 04/27/22 23:32 Respiratory Depth Normal 04/27/22 23:32 Respiratory Pattern Normal 04/27/22 23:32 Blood Pressure 108/71 04/28/22 08:25 Blood Pressure Mean 95 04/27/22 10:45 Blood Pressure Position Supine 04/27/22 10:45 Pulse Oximetry 98 04/28/22 06:39 Respiratory End-tidal CO2 24 04/27/22 17:15 Oxygen Delivery Method Room Air 04/28/22 08:25 Oxygen Flow Rate 0 04/28/22 08:25 Pain Level 1 04/28/22 08:29 Comment 04/27/22 10:45 Intake & Output 04/27/22 04/27/22 04/28/22 11:59 23:59 11:59 Intake Total 110 / 1170 1060 / 1170 50 / 50 Output Total 500 / 500 850 / 850 Balance 110 / 670 560 / 670 -800 / -800 Weight 84.7 kg Intake: IV 110 / 1170 1060 / 1170 50 / 50 Output: Urine 250 / 250 850 / 850 Estimated Blood Loss 250 / 250 Other: Urine Color Yellow Yellow Urine Appearance Clear Clear Urine Odor None None Emesis Description None Voiding Methods Urinal Urinal PFSH All Active Problems Left knee DJD (Chronic) Steroid injection: 01/12/2022 Aspiration and injection: 01/23/20 Internal derangement of left knee (Acute) Effusion, left knee (Acute) Aspiration and injection: 01/23/20 Medical History Biceps tendon tear Hyperlipidemia Surgical History Hx of elbow surgery Status post fracture of femur ~27 years ago Intramedullary shani Social History Smoking/Tobacco Use Status: Former Tobacco Use Quit Date: 07/12/80 Smoking risk assessment performed?: Yes Drug use: Occasionally Substance use type: marijuana Details: smokes pot couple days ago. Do you feel safe at home: Yes Do you feel safe in your relationship?: Yes
--- NOTE | 2022-04-28 09:50 | INDS_ITS ---
Date of service: 04/28/22 Time of Service: 09:50 PT Notes Visit Reasons: Left Femur Removal Of Hardware and Left TKA Physical Therapy Inpatient Discharge Summary Date: 04/28/2022 Dates of Service: 04/28/2022 only Referring Doctor: SCOTT Aden PT Orders: PT CONSULT: S/p Ortho surgery Precautions: WBAT on L LE with AD. Patient Profile/Admitting Diagnosis:? Derrick is a 62-year-old male with past medical history significant for L knee posttraumatic arthritis, S/P left femoral nail fixation 27 years ago and MCL injury in 2017 who is status post left total knee arthroplasty with attempted IM hardware removal from the left femur on postoperative day 1.? PMHX: All Active Problems?(Updated 01/12/22 @ 15:10 by SCOTT Watson) Effusion, left knee (Acute) Aspiration and injection: 01/23/20 Internal derangement of left knee (Acute) Left knee DJD (Chronic) Steroid injection: 01/12/2022 Aspiration and injection: 01/23/20 Medical History?(Updated 01/12/22 @ 15:10 by SCOTT Watson) Hyperlipidemia Surgical History? Status post fracture of femur ~27 years ago Intramedullary shani Social History/Home Situation: Lives with in a private home with no steps to enter.? Bedroom is on the second floor however he states that he can manage on the min floor if he needs to.? Independent with all aspects of ADLs prior to surgery.? 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 Equipment Owned/DME: FWW Subjective: Happy to have eaten breakfast. Okay with training with exercises safe to do at home in the next two weeks. Objective: General Observation: Seated on bedside chair.? MICHELA wraps to Mental Status: Alert and oriented as to person, place, time, and purpose. Able to pay attention, focus, and respond appropriately. Pain: 5-6/10 in L hip,? minimal on the L knee at 3-4/10 Vital Signs: WNL as closely monitored by nursing staff ROM: Right Lower Extremity: Hip flexion WFL. Hip abduction WFL. Knee flexion WFL. Ankle dorsiflexion WFL. Ankle plantarflexion WFL. Left Lower Extremity: Hip flexion WFL. Hip abduction WFL. Knee flexion 10 degrees to 110 degrees. Knee extension -10 degrees.? Ankle dorsiflexion WFL. Ankle plantarflexion WFL. Strength: Right Lower Extremity: Hip flexors 5/5. Hip abductors 5/5. Knee flexors 5/5. Knee extensors 5/5. Ankle dorsiflexors 5/5. Ankle plantarflexors 5/5. Left Lower Extremity: Hip flexors 4-/5. Hip abductors 4-/5. Knee flexors 3-/5. Knee extensors 3-/5. Ankle dorsiflexors 4/5. Ankle plantarflexors 4/5. Sensation: Intact as to pain adn light pressure in B LE Bed Mobility/Transfers: Sit to stand supervision using FWW Stand to sit supervision using FWW Bed to reclining chair supervision using FWW Reclining chair to bed supervision using FWW THERA EX: Re-introduced HEP consisting of: Straight leg raise, Seated LAQs, seated and standing marches, back kicks, partial knee bends while holding onto sturdy surface, and bilaterak heel raises holding onto walker/sturdy surface. Balance: Static Sitting: Normal Dynamic Sitting: Normal Static Standing: Fair Dynamic Standing: Fair Assessment: Patient is able to perform bed mobility,? transfers, and ambulation with FWW with stand by assist only. ? Patient presents with clinical signs and symptoms consistent with current/admitting diagnoses that have resulted to mobility limitations as demonstrated by the following impairment level findings: 1.? Decreased strength to L hip and knee major muscle groups 2.? Impaired standing balance 3.? Impaired activity tolerance 4.? Limitation of joint range of motion in L knee Impairments are contributing to the following functional limitations: 1.? Difficulty with ambulation without assistive device 2.? Increased completion time for mobility ADL performance Goals: Goals X1 week 1. Supine-Sit independent MET 2. Sit-Supine independent MET 3. Sit-Stand independent MET 4. Stand-Sit independent with FWW MET 5. Bed-Chair independent with FWW MET 6. Chair-Bed independent with FWW MET 7. Independent gait on level surface with use of FWW for at least 500 feet without report of pain nor dyspnea NOT MET 8. Independent with home exercise program MET 9. Good static and dynamic standing balance/tolerance NOT MET DISCHARGE RECOMMENDATIONS: [] ? Home with no services [] [] ? Home with services [specify] [X] ? Home with outpatient PT. Home when medically cleared by orthopedic surgeon.? Patient will benefit from outpatient PT services in order to maximize functional outcomes and regain independent community ambulation without an assistive device. [] ? SNF for continued rehabilitation [] [] ? Eating Disorder Specialist Care [] [] ? SNF versus LTC based on ability to participate and progress [] TREATMENT CODE/TIME: 44548 x 15 minutes beginning at 9:50 AM. Thank you for the opportunity to participate in the care of this patient. Loraine Esparza PT, DPT, CLT [facility] [place], [place]
[2022-04-28] MEDS: Normal Saline 500 ML 30 ML IV (10:13)
[2022-04-28] MEDS: Normal Saline Flush 10 ML SYR IV ×2 (10:14→12:26)
[2022-04-28 11:49] VITALS: BP 109/66; PULSE 90; RESP 16; TEMP 36.1; O2SAT 98
== END 2022-04-28 15:47 | disposition home or self-care (01) ==
LOC: PDS 12:57 → MS 17:35
PROVIDERS: Admitting Provider Student in an Organized Health Care Education/Training Program; PCP Nurse Practitioner Family; Visit Provider Student in an Organized Health Care Education/Training Program
PROC: (CPT 27447; principal; 2022-04-27 11:30)
PROC: (CPT 27447; 2022-04-27 11:30)
DX: M17.32 Unilateral post-traumatic osteoarthritis, left knee (principal); Z47.2 Encounter for removal of internal fixation device; Z53.8 Procedure and treatment not carried out for other reasons
CPT/HCPCS: 27447; 20985; 20680; C1776; 73552; 76942; 96365; 97110; 97162; 97530; J0690; J1100; J2250; J2405; J2704

== ENCOUNTER 2022-05-09 10:57 | Outpatient (CLI) | payer OTHER, SELFPAY ==
--- NOTE | 2022-05-09 10:15 | DI.RAD_ITS ---
Exam(s) XR KNEE LT 1V XR STANDING ALIGNMENT EXAM: XR STANDING ALIGNMENT and XR knee LT 1 V CLINICAL HISTORY: 1ST POST OP L TKA. TECHNIQUE: 2D digital imaging was performed. Five images were obtained. COMPARISON: CR XR FEMUR LT from 01/23/2020 CR XR STANDING ALIGNMENT from 04/04/2022 CR XR KNEE LT 1V from 05/09/2022 FINDINGS: BONES: Degenerative changes are seen in the hips, left greater than right. The right knee is well ma intained. Since the prior examination the patient has undergone a left total knee replacement. The orthopedic hardware appears in good position. The intramedullary shani in the left femur has been retr acted with approximately 15 mm now located beyond the cortex proximally. There is an old healed left femoral fracture.There is no significant leg length discrepancy. SOFT TISSUE: Normal. IMPRESSION: Status post left total knee replacement. DATA REPOSITORY: RADIATION DOSE DELIVERED:
== END 2022-05-09 10:58 | disposition home or self-care (01) ==
LOC: DIORS 10:58
PROVIDERS: PCP Nurse Practitioner Family; Referring Provider Nurse Practitioner Family; Visit Provider Student in an Organized Health Care Education/Training Program
DX: Z96.652 Presence of left artificial knee joint (principal); Z47.1 Aftercare following joint replacement surgery
CPT/HCPCS: 73560; 77073

== ENCOUNTER 2024-02-06 16:34 | Outpatient (REF) | payer OTHER, SELFPAY ==
[2024-02-06 19:14] LABS: Abs Immature Grans 0.01 10^3/uL (0.0-0.06); Absolute Basophil Count 0.01 10^3/uL (0.0-0.2); Absolute Eosinophil Count 0.04 10^3/uL (0.0-0.7); Absolute Lymphocyte Count 1.17 10^3/uL (1.2-3.4); Absolute Monocyte Count 0.78 10^3/uL (0.1-0.8); Absolute Neutrophil Count 3.29 10^3/uL (1.2-6.7); Basophils % 0.2 %; Eosinophils % 0.8 %; HGB 12.8 g/dL (13.5-17.5); Immature Grans % 0.2 %; Lymphocytes % 22.1 %; MCH 32.7 pg (27.0-33.0); MCHC 33.7 % (32.0-36.0); MCV 97 fL (80-95); MPV 10.4 fL (8.0-11.0); Monocytes % 14.7 %; Platelet Count 190 10^3/uL (130-400); RBC 3.91 10^6/uL (4.36-5.78); RDW 11.9 % (11.8-14.1); RDW-SD 42.8 fL
[2024-02-06 19:44] LABS: ALT 40 U/L (16-63); AST 38 U/L (15-37); Albumin 3.5 g/dL (3.4-5.0); Alkaline Phosphatase 71 U/L (46-116); Anion Gap 4.2 mmol/L (3-11); BUN 13 mg/dL (7-18); Bilirubin, Total 0.7 mg/dL (0.2-1.0); CO2 26.8 mmol/L (21.0-32.0); CREATININE 0.9 mg/dL (0.70-1.30); Calculated LDL 118 mg/dL (<100); Chloride 103 mmol/L (98-107); Cholesterol 216 mg/dL (<200); Estimated GFR 96.57 (mL/min/1.73m2); Glucose 97 mg/dL (74-106); HDL Cholesterol 68 mg/dL (40-60); Potassium 4.3 mmol/L (3.5-5.1); Sodium 134 mmol/L (136-145); TSH 3.44 uIU/Ml (0.36-3.74); Total Protein 7.8 g/dL (6.4-8.2); Triglyceride 150 mg/dL (<150)
== END 2024-02-06 16:35 | disposition home or self-care (01) ==
LOC: NCHCN 16:34
PROVIDERS: Visit Provider Student in an Organized Health Care Education/Training Program
DX: E78.5 Hyperlipidemia, unspecified (principal); R01.1 Cardiac murmur, unspecified
CPT/HCPCS: 80053; 80061; 84443; 85025

== ENCOUNTER → 2024-02-26 09:30 | Outpatient (CLI) | payer OTHER, SELFPAY ==
--- NOTE | 2024-02-26 08:30 | DI.US_ITS ---
APPROVED REPORT EXAM: Comprehensive 2D, Doppler, and color-flow Echocardiogram Patient Location: Out-Patient Music Publisher: Joe Kelley RDCS (AE) Indications: New systolic cardiac murmur, heard best at RUSB Conclusion Normal left ventricular wall thickness and chamber size. Ejection fraction is 60 to 65%. Wall motio n is normal Normal right ventricular size and function Both atria are normal in size Trileaflet mildly sclerotic aortic valve with trace regurgitation There is no additional valvular heart disease Estimated right ventricular systolic pressure is 27 mmHg Wall motion Left Ventricle The left ventricle is normal size. The left ventricular systolic function is normal. The left ventric ular ejection fraction is within the normal range. There is normal left ventricular wall thickness. T here is normal LV segmental wall motion. There is no ventricular septal defect visualized. LVEF is 60 -65%. Right Ventricle The right ventricle is normal size. The right ventricular systolic function is normal. Atria The left atrium size is normal. The right atrium size is normal. The interatrial septum is intact wit h no evidence for an atrial septal defect. Aortic Valve The Aortic valve is mildly sclerotic. Aortic valve is trileaflet. There is no aortic valvular stenosi s. Trace aortic regurgitation. Mitral Valve The mitral valve is normal in structure. No evidence of mitral valve stenosis. Trace mitral regurgita tion. Tricuspid Valve The tricuspid valve is normal in structure. There is no tricuspid valve stenosis. Mild tricuspid regu rgitation. The RVSP is 27.1 mmHg. Pulmonic Valve The pulmonary valve is normal in structure. There is no pulmonic valvular stenosis. Mild pulmonic reg urgitation. Great Vessels The aortic root is normal in size. The ascending aorta is normal in size. Aortic arch is normal in ca liber. IVC is normal in size and collapses >50% with inspiration. Pericardium There is no pericardial effusion. 2D Dimensions IVSD d PLAX 0.90 cm M: 0.6-1.2 Ao Root d 2.63 cm M: 3.1 - 3.7 LVPW d PLAX 0.95 cm M: 0.6 - 1.2 Ao Asc Diam d 3.12 cm M: 2.6 - 3.4 LVID d PLAX 4.44 cm M: 4.2 - 5.8 LVDs 2.92 cm M: 2.5 - 4.0 LV EF Teichholz 63.3 % FS 34.14 % LV EDV (Teich) 89.6 mL LV ESV (Teich) 32.9 mL Stroke Vol Index (Teich) 29.85 M-Mode TAPSE 1.97 cm (M/F) >1.7 Auto EF LV EDV A4C 133.4 mL LV EDV A2C 122.8 mL LV EDV BP 127.5 mL LV ESV A4C 53.9 mL LV ESV A2C 49.4 mL LV ESV BP 51.9 mL LVEF(%) A4C 59.6 % LVEF(%) A2C 59.8 % LVEF(%) BP 59.3 % LV SV A4C 79.5 ml LV SV A2C 73.4 ml LV SV BP 75.7 ml LV CO A4C 4.4 L/min LV CO A2C 4.1 L/min LV CO BP 4.2 L/min HR A4C 54.96 BPM HR A2C 55.73 BPM LV EDV Index (BP) LA Volume LA Length A4C 3.7 cm LA Length A2C 5.2 cm LA Area A4C s 8.95 cm2 LA Area A2C s 17.64 cm2 LA Vol A4C A-L 18.16 mL LA Vol A2C A-L 50.91 mL LA Vol Biplane A-L 35.8 mL LA Vol/BSA A4C A-L LA Vol/BSA A2C A-L LA Vol/BSA BP A-L 18.8 mL/m2 LA Vol A4C MOD 16.7 mL LA Vol A2C MOD 47.1 mL LA Vol BP MOD 33.0 mL RA Volume RA Area A4C 14.0 cm2 RA ESV A4C (A-L) 36.9mL RA Vol/BSA A4C A-L RA Length A4C 4.5 cm RA ESV A4C (MOD) 36.5mL LV Diastology MV E' medial 0.071 (>0.07 m/s) MV E Vmax 0.60 (0.4-1.3 m/s) MV E/E' MED 8.44 (<14) MV A Vmax 0.50 (0.4-1.3 m/s) MV E' lateral 0.092 (>0.1 m/s) E/A Ratio 1.2 MV E/E' LAT 6.53 (<14) MV E' Average 0.082 m/s MV E/E'(average) 7.36 Aortic Valve AoV Vmax 1.37 m/s LVOT Vmax 0.95 m/s AoV Peak Grad 25.4 mmHg LVOT Peak Grad 3.6 mmHg AoV Area (Vmax) 2.00 cm2 LVOT VTI 0.225 m AoV VTI 0.327 m LVOT Mean Grad 2.1 mmHg AoV Mean Vito. 0.92 m/s LVOT SV 64.82 mL AoV Mean Grad 3.9 mmHg LVOT Diam s 1.90 cm AoV Area (VTI) 1.98 cm2 AV Regurg Peak Gr. 43.25 mmHg Velocity Ratio 0.69 AR Decel Harney 1.1m/sec2 AR DT 3014 msec AR PHT 874 msec AR Vmax 3.29 m/s Mitral Valve MV DT 328 (160-240 msec) Pulmonary Valve PV Vmax 0.81 (0.5-1.5 m/s) RVOT Vmax 0.42 m/s PV Peak Grad 2.6 mmHg RVOT Peak Gr. 0.7 mmHg PV Mean Vito 0.53 m/s RVOT VTI 0.109 m PV Mean Grad 1.3 mmHg RVOT Mean Gr. 0.4 mmHg Tricuspid Valve RA Pressure 3.00 mmHg TR Vmax 2.46 m/s TR Peak Grad 24.1 mmHg RVSP (TR) 27.1 mmHg
== END ==
PROVIDERS: PCP Student in an Organized Health Care Education/Training Program; Visit Provider Student in an Organized Health Care Education/Training Program
DX: R01.1 Cardiac murmur, unspecified (principal)
CPT/HCPCS: 93306

== ENCOUNTER 2024-04-26 16:35 | Emergency (ER) | payer OTHER, SELFPAY ==
[2024-04-26] VITALS (50 sets, daily range): BP systolic 108–168; BP diastolic 70–132; PULSE 71–104; RESP 10–26; TEMP 36.7; O2SAT 84–97
--- NOTE | 2024-04-26 16:30 | DI.RAD_ITS ---
Exam(s) XR ELBOW LT COMPLETE EXAM: XR ELBOW LT COMPLETE CLINICAL HISTORY: trauma. TECHNIQUE: 2D digital imaging was performed. COMPARISON: No exams were available for comparison FINDINGS: 3 views Is fracture subluxation of the elbow joint. There is a prominent displaced fracture of the olecranon fossa. There is no obvious fracture of the distal humerus but there is lateral subluxation of the radial head and proximal ulna relative to the capitellum and trochlea, respectively. There is no obvious fracture of the radial head and neck. No radiopaque foreign body. Joint effusion evident IMPRESSION: Fracture subluxation. The main fracture is a prominently displaced fracture of the olecranon fossa o f the proximal ulna. DATA REPOSITORY: RADIATION DOSE DELIVERED:
--- NOTE | 2024-04-26 16:30 | DI.CT_ITS ---
Exam(s) CT HEAD CERVICAL SPINE WO EXAM: CT HEAD CERVICAL SPINE WO CLINICAL HISTORY: fall/ trauma. TECHNIQUE: Imaging Protocol: Axial computed tomography images with coronal and sagittal reformatted images were created and reviewed COMPARISON: No exams were available for comparison FINDINGS: BRAIN: There are no skull fractures nor fluid in the visualized paranasal sinuses. There is no evidence of intracranial hemorrhage, mass effect, or shift of midline structures. There are no extra-axial fluid collections. The ventricles are not enlarged or shifted and there is no blo od within the ventricular system nor within the basal cisterns. CERVICAL SPINE: There is multi reversal of the normal cervical curvature but no evidence of fracture nor listhesis. No significant prevertebral soft tissue swelling. There is moderate-advanced disc space narrowing at C4-5 level. Small Luschka joint osteophytes noted at this level. Mild narrowing of C5-6 level. There is facet arthropathy which is most prominent on the left side at C3-4 and C5-6 level. There is no significant facet joint malalignment. No significant osseous lesions evident. IMPRESSION: No acute intracranial findings on this noninfused CT scan of the brain. No evidence of cervical spine fracture, malalignment, nor acute compromise of the cervical spinal can al. Multilevel degenerative changes as described above. Report called by myself to ER provider 04/26/2024 at 5:50 p.m. RADIATION DOSE DELIVERED: Total DLP DATA REPOSITORY: All CT scans at this facility are submitted to the National Radiology Data Registry (NRDR) Dose Index Registry (DIR) with the [employer] (A[employer]). RADIATION OPTIMIZATION: All CT scans at this facility use at least one of these dose optimization te chniques: automated exposure control; mA and/or kV adjustment per patient size (includes targeted exa ms where dose is matched to clinical indication); or iterative reconstruction.
--- NOTE | 2024-04-26 16:30 | DI.RAD_ITS ---
Exam(s) XR FOREARM LT EXAM: XR FOREARM LT CLINICAL HISTORY: fall/ trauma. TECHNIQUE: 2D digital imaging was performed. COMPARISON: No exams were available for comparison FINDINGS: Two views There is lateral displacement of the radial head and proximal ulna relative to the capitellum and tro chlea of the distal humerus, respectively. This is related to the displaced fracture of the olecrano n fossa of the proximal ulna, as best seen on the lateral dedicated elbow images. There are no other fractures more distally in the radius and ulna. If there is suspicion for injury at the level the wrist/carpal bones than dedicated wrist views can b e performed. IMPRESSION: As above. DATA REPOSITORY: RADIATION DOSE DELIVERED:
--- NOTE | 2024-04-26 16:47 | W.ED.GENAD ---
Discharge Plan Discharge Details Chief Complaint: Orthopedic Clinical Impression: Fracture dislocation of left elbow joint Primary Care Provider: Aung Ness ED Provider: Bahman Pham Home Meds and New Rx's Prescriptions: No Action gabapentin 300 mg capsule 300 mg PO QHS Qty: 30 1RF phytonadione (vitamin K1) 5 mg tablet 5 mg PO DAILY milk thistle 150 mg capsule 300 mg PO DAILY Rx Instructions: give with meal/snack cholecalciferol (vitamin D3) 10 mcg (400 unit) capsule 10 mcg PO DAILY magnesium oxide 400 mg magnesium capsule 400 mg PO DAILY turmeric 400 mg capsule 400 mg PO DAILY glucosamine-chondroitin 900 mg tablet 900 mg PO DAILY omega 8-lat-sqt-fish oil 300-1,000 mg capsule 1 cap PO DAILY vitamin B complex [B Complex-Vitamin B12] Tablet 1 tab PO DAILY lidocaine [Lidocaine Pain Relief] 4 % Adhesive Patch,Medicated 1 patch TOPICAL DIRECTED melatonin 12 mg Tablet,Disintegrating 12 mg PO HS aspirin 81 mg tablet,delayed release (DR/EC) 81 mg PO BID Qty: 60 0RF acetaminophen 500 mg tablet 1,000 mg PO Q8H PRN (Reason: pain) Qty: 90 3RF HPI General Mode of arrival: EMS. Date/Time Provider Initiated Documentation: 04/26/24 16:38. Limitations to Documentation: no limitations. Information obtained by: patient and RN notes reviewed. History of Present Illness 64 year old M presents to the emergency department with the chief complaint of Mechanical fall, described as moderate, Quality is described as aching, and is localized to the left and upper extremity. Patient reports no radiation. Patient started experiencing this hour(s) (<1) and it has been constant. No relieving factors improve symptom(s), No exacerbating factors reported . Patient notes no other symptoms.. Patient did receive the following treatments prior to arrival, none Related Data Home Medications ?Medication ?Instructions ?Recorded ?Confirmed antiarthritic combination no.2 900 900 mg PO DAILY 01/05/22 04/26/24 mg tablet (glucosamine-chondroitin) cholecalciferol (vitamin D3) 10 10 mcg PO DAILY 01/05/22 04/26/24 mcg (400 unit) capsule magnesium oxide 400 mg PO DAILY 01/05/22 04/26/24 omega 0-zxr-vqp-fish oil 300 1 cap PO DAILY 01/05/22 04/26/24 mg-1,000 mg capsule turmeric 400 mg capsule 400 mg PO DAILY 01/05/22 04/26/24 vitamin B complex (B 1 tab PO DAILY 01/05/22 04/26/24 Complex-Vitamin B12 tablet) milk thistle 150 mg capsule 300 mg PO DAILY 01/12/22 04/26/24 phytonadione (vitamin K1) 5 mg 5 mg PO DAILY 01/12/22 04/26/24 tablet lidocaine 4 % topical patch 1 patch topical DIRECTED 04/26/22 04/26/24 (Lidocaine Pain Relief) melatonin 12 mg disintegrating 12 mg PO HS 04/27/22 04/26/24 tablet acetaminophen 500 mg tablet 1,000 mg (2 x 500 mg) PO Q8H PRN 04/28/22 04/26/24 pain #90 tabs aspirin 81 mg tablet,delayed 81 mg PO BID #60 tabs 04/28/22 04/26/24 release gabapentin 300 mg capsule 300 mg PO QHS #30 caps 07/19/22 04/26/24 Previous Rx's ?Medication ?Instructions ?Recorded acetaminophen 500 mg tablet 1,000 mg (2 x 500 mg) PO Q8H PRN 04/28/22 pain #90 tabs aspirin 81 mg tablet,delayed 81 mg PO BID #60 tabs 04/28/22 release gabapentin 300 mg capsule 300 mg PO QHS #30 caps 07/19/22 Allergies Allergy/AdvReac Type Severity Reaction Status Date / Time tramadol Allergy Skin Rash Verified 04/26/24 16:46 kiwi Allergy Unknown per Uncoded 04/26/24 16:46 pt.throat feels funny General Stated Complaint: Orthopedic JAY: 3 Review of Systems Constitutional Constitutional: Denies headache(s) ENT Ears, Nose, Mouth, and Throat: Denies dizziness, Denies headache(s) and Denies neck pain Cardiovascular Cardiovascular: Denies chest pain, Denies syncope and Denies dyspnea Respiratory Respiratory: Denies dyspnea Gastrointestinal Gastrointestinal: Denies abdominal pain, Denies nausea and Denies vomiting Musculoskeletal Musculoskeletal: Reports as per HPI, Denies back pain, Reports deformity, Reports arthralgias, Reports limited range of motion, Denies neck pain, Denies numbness and Denies tingling Integumentary/Breasts Skin/Breast: Reports wounds (Scalp laceration) Neurologic Neurologic: Denies dizziness, Denies syncope, Denies headache(s), Denies lack of coordination, Denies localized weakness, Denies numbness, Denies seizure-like activity and Denies tingling Exam Const General: cooperative, healthy appearing, no acute distress and well groomed Orientation: alert, awake and oriented x3 [facility] Head: laceration vertex Ears: hearing grossly normal bilaterally and external ears normal Face and sinus: normal facial exam Eyes Visual Keane: normal visual keane by confrontation Alignment and Position: alignment normal Periorbital: periorbital findings normal Eyelids: eyelids normal Sclera: sclerae normal Pupils: PERRL EOM: EOM intact bilaterally Neck Neck: normal visual inspection, full ROM and nontender Chest Chest: normal palpation of entire chest wall, no crepitus and no tenderness Resp Effort & Inspection: normal respiratory effort and able to speak in complete sentences Auscultation: clear to auscultation bilaterally Cardio Rate: regular rate Rhythm: regular rhythm Heart Sounds: S1 normal and S2 normal GI Inspection: normal to inspection Palpation: soft, not firm, no guarding and nontender Back/Spine/Pelvis Cervical Spine: normal cervical lordosis, cervical ROM normal, No cervical muscular tenderness, No pain with cervical ROM, No cervical spinal tenderness and No step off deformity Thoracic/Lumbar Spine: thoracic and lumbar spine normal to inspection Neuro General: patient alert, patient awake, patient oriented x3, tone normal, moves all extremities and not confused Cognition: normal cognition Speech: speech normal Motor: muscle tone normal throughout Coordination: Does not sway with eyes open Course Vital Signs Vital signs: Vital Signs Pulse Oximetry 93 04/26/24 16:37 Temperature 36.7 C 04/26/24 16:38 Pulse 96 H 04/26/24 16:39 Respiratory Rate 15 04/26/24 16:38 Respiratory Effort Normal 04/26/24 16:42 Blood Pressure 132/96 H 04/26/24 16:39 Blood Pressure Mean 107 04/26/24 16:39 Blood Pressure Position Sitting 04/26/24 16:38 Pulse Oximetry 93 04/26/24 16:40 Oxygen Delivery Method Room Air 04/26/24 16:38 Oxygen Flow Rate 0 04/26/24 16:38 Pain Level 4 04/26/24 16:38 Medical Decision Making Patient presenting to the emergency department via EMS for chief complaint of mechanical fall with minor head injury mostly complaining of left elbow pain and discomfort. Patient states that he was cooking some visitors dinner when he was walking to his generator and tripped over the electrical cord. He attempted to stop his fall by reaching out with his right arm to grab a bench but missed and landed on his left elbow and struck his head he believes on the metal bench. Patient denies loss of consciousness, chest pain, neck back or abdominal pain. Does state that he did have some alcohol while cooking but denies all other symptoms. Physical exam shows a scalp laceration with bleeding controlled at time of arrival, significant swelling and tenderness to left elbow and somewhat to midshaft forearm otherwise noncontributory exam. Given that patient was drinking alcohol I do feel that performing a head and neck CT image is prudent given potential distracting injury we will also perform plain film imaging of area of concern of left upper extremity. Patient did receive a small fluid bolus and acetaminophen and route by EMS so will give slight amount of ketorolac pending results. Review of radiological imaging and speaking with radiologist shows a trans olecranon fracture dislocation. CT imaging of the head and neck and forearm otherwise negative. Spoke with Dr. Benjamin who recommended speaking with tertiary care center given the specific type of fracture and difficulty with reduction. Spoke with on-call orthopedist [place] [facility] [place] stated that they were at high capacity in the emergency department and recommended that we attempt reduction. Dr. Benjamin was willing to come in and attempt reduction. Please see his note along with Dr. Gutierres procedural sedation note. Of note it was reported that reduction was successful in some regards but unstable and would need surgical intervention preferably at tertiary care center. As requested postreduction films were sent to [facility] for further consultation. Lab Data Lab results reviewed: Yes I reviewed the patient's lab results. Quality:SDDE Health Related Social Needs: No Data to Display PFSH All Active Problems Fracture dislocation of left elbow joint (Acute 04/26/24) Femoral acetabular impingement (Acute) History of total left knee replacement (Acute 04/27/22) Medical History Biceps tendon tear Hyperlipidemia Surgical History Hx of elbow surgery Status post fracture of femur ~27 years ago Intramedullary shani Social History Smoking/Tobacco Use Status: Former Tobacco Use Quit Date: 07/12/80 Smoking risk assessment performed?: Yes Drug use: Occasionally Substance use type: marijuana Details: smokes pot couple days ago. Do you feel safe at home: Yes Do you feel safe in your relationship?: Yes Sign Out Sign Out Data: Sign Out Comment: Patient pending disposition by orthopedic group at [facility] for discussion of timing of surgical intervention for unstable left elbow fracture. Last updated by Bahman Pham NP at 04/27/24 00:31 PAWSS Have you Been Recently Intoxicated or Drunk Within the Last 30 days?: No Have you Ever Experienced Previous Episodes of Alcohol Withdrawal?: No Have you ever Experienced Withdrawal Seizures?: No Have you ever Experienced Delirium Tremens(DT)s?: No Have you ever undergone Alcohol Rehabilitation Treatment (i.e, inpt ot outpatient treatment programs)?: No Have you ever Experienced Blackouts?: No Have you ever Combined Alcohol with other Downers within the last 90 days?: No Have you ever Combined Alcohol with any other Substance of Abuse during the last 90 days?: No Positive Blood Alcohol level on Presentation? [PCS.BAL]: No Evidence of Increased Autonomic Activity (i.e. HR>120, tremor, sweating, agitation, nausea)?: No Result: 0
[2024-04-26] MEDS: Ketorolac 15 MG/ML VIAL IVP (16:58)
--- NOTE | 2024-04-26 18:08 | DI.VRAD_ITS ---
PROCEDURE INFORMATION: Exam: XR Left Forearm Exam date and time: 04/26/2024 5:33 PM Age: 64 years old Clinical indication: Injury or trauma; Fall; Dislocation and fracture, pathological; Cause of pathological fracture not specified; Closed fracture and displaced; Ulna, distal end; Left; Radius and ulna TECHNIQUE: Imaging protocol: Radiologic exam of the left forearm. Views: 2 views. COMPARISON: No relevant prior studies available. FINDINGS: Bones/joints: Complete dislocation of the elbow joint is noted with lateral displacement of the proximal ulna and radius with respect to the distal humerus. Olecranon fracture is better visualized on dedicated elbow film from the same day. No other definite fracture visualized. Soft tissues: Soft tissue swelling and gas noted about the elbow. No radiodense foreign body. IMPRESSION: Complete dislocation of the elbow joint with associated olecranon fracture Dictated and Authenticated by: Balta Alicea MD. Ordering:DALE Ruggiero MD
--- NOTE | 2024-04-26 18:10 | DI.VRAD_ITS ---
PROCEDURE INFORMATION: Exam: XR Left Elbow Exam date and time: 04/26/2024 5:36 PM Age: 64 years old Clinical indication: Injury or trauma; Fall; Fracture, traumatic injury; Closed fracture; Elbow; Left TECHNIQUE: Imaging protocol: Radiologic exam of the left elbow. Views: 3 or more views. COMPARISON: CR XR FOREARM LT 04/26/2024 5:33 PM FINDINGS: Bones/joints: There is complete dislocation of the elbow joint with lateral displacement of the proximal ulna and radius with respect of the distal humerus. Significantly displaced and distracted fracture is noted at the base of the olecranon, best visualized on view. No other definite fracture. Soft tissues: Soft tissue swelling and gas noted about the elbow. No radiodense foreign body within the soft tissues. IMPRESSION: Complete dislocation of the elbow joint with associated displaced and distracted olecranon fracture Dictated and Authenticated by: Balta Alicea MD. Ordering:DALE Ruggiero MD
[2024-04-26] MEDS: HYDROmorphone 2 MG/ML SYR 0.5 MG IVP (18:15)
[2024-04-26] MEDS: Normal Saline 1,000 ML 1000 ML IV (18:50)
--- NOTE | 2024-04-26 19:30 | DI.RAD_ITS ---
Exam(s) XR FLOURO OR C-ARM <1 HR EXAM: XR FLOURO OR C-ARM <1 HR CLINICAL HISTORY: Left elbow reduction TECHNIQUE: 2D and realtime digital imaging was performed. CONTRAST MATERIAL: Refer to procedure report. COMPARISON: CR,XR XR ELBOW LT COMPLETE from 04/26/2024 FINDINGS: Fluoroscopy was provided for Bahman Pham during the performance of a reduction of the elbow join t dislocation. Please refer to the procedure report for complete details. Ka,r=0.21 mGy IMPRESSION: RADIATION DOSE DELIVERED: 0.0 0.0 0
[2024-04-26 19:39] LABS: Abs Immature Grans 0.02 10^3/uL (0.0-0.06); Absolute Basophil Count 0.04 10^3/uL (0.0-0.2); Absolute Eosinophil Count 0.01 10^3/uL (0.0-0.7); Absolute Lymphocyte Count 1.92 10^3/uL (1.2-3.4); Absolute Monocyte Count 0.69 10^3/uL (0.1-0.8); Basophils % 0.4 %; Eosinophils % 0.1 %; HCT 44.5 % (40.0-50.0); HGB 15.2 g/dL (13.5-17.5); Immature Grans % 0.2 %; Lymphocytes % 17.6 %; MCH 32.3 pg (27.0-33.0); MCHC 34.2 % (32.0-36.0); MCV 95 fL (80-95); MPV 8.2 fL (8.0-11.0); Monocytes % 6.3 %; Neutrophils % 75.4 %; Platelet Count 202 10^3/uL (130-400); RDW 11.3 % (11.8-14.1); RDW-SD 39.5 fL; WBC 10.93 10^3/uL (4.4-10.8)
[2024-04-26 19:41] LABS: Absolute Neutrophil Count 8.24 10^3/uL (1.2-6.7)
--- NOTE | 2024-04-26 19:49 | ED.PROG_ITS ---
Date of service: 04/26/24 Time of Service: 21:14 Medical Decision Making Patient evaluated in conjunction with the nurse practitioner. Requested to assist with sedation. Patient reports last solid food intake yesterday, did have some drink a few hours ago. Patient evaluated and consented for sedation. Reduction peformed by ortho staff. Quality:SDOH Health Related Social Needs: No Data to Display Procedures Procedural Sedation Indication: fracture/dislocation reduction ASA Class: II Time of Last PO Intake: 14:30 Preparation: cardiac exercise specialist applied, pulse oximeter, capnometry used, supplemental O2 applied, reversal agents at bedside, suction/airway equipment at bedside and IV secured IV Propofol dose (mg): 80 Complications: none Discharge Plan Discharge Details Chief Complaint: Orthopedic Primary Care Provider: Aung Ness ED Provider: Bahman Pham Home Meds and New Rx's Prescriptions: No Action gabapentin 300 mg capsule 300 mg PO QHS Qty: 30 1RF phytonadione (vitamin K1) 5 mg tablet 5 mg PO DAILY milk thistle 150 mg capsule 300 mg PO DAILY Rx Instructions: give with meal/snack cholecalciferol (vitamin D3) 10 mcg (400 unit) capsule 10 mcg PO DAILY magnesium oxide 400 mg magnesium capsule 400 mg PO DAILY turmeric 400 mg capsule 400 mg PO DAILY glucosamine-chondroitin 900 mg tablet 900 mg PO DAILY omega 4-wcw-hdh-fish oil 300-1,000 mg capsule 1 cap PO DAILY vitamin B complex [B Complex-Vitamin B12] Tablet 1 tab PO DAILY lidocaine [Lidocaine Pain Relief] 4 % Adhesive Patch,Medicated 1 patch TOPICAL DIRECTED melatonin 12 mg Tablet,Disintegrating 12 mg PO HS aspirin 81 mg tablet,delayed release (DR/EC) 81 mg PO BID Qty: 60 0RF acetaminophen 500 mg tablet 1,000 mg PO Q8H PRN (Reason: pain) Qty: 90 3RF
[2024-04-26 19:56] LABS: ETHANOL BLOOD 195.1 mg/dL (<10)
[2024-04-26 20:00] LABS: ALT 25 U/L (16-63); AST 30 U/L (15-37); Albumin 3.5 g/dL (3.4-5.0); Alkaline Phosphatase 68 U/L (46-116); Anion Gap 11.7 mmol/L (3-11); BUN 8 mg/dL (7-18); Bilirubin, Total 0.29 mg/dL (0.2-1.0); CO2 23.3 mmol/L (21.0-32.0); Calcium 7.9 mg/dL (8.5-10.1); Chloride 105 mmol/L (98-107); Glucose 127 mg/dL (74-106); Sodium 140 mmol/L (136-145)
--- NOTE | 2024-04-26 20:45 | DI.RAD_ITS ---
Exam(s) XR WRIST LT COMPLETE EXAM: XR WRIST LT COMPLETE CLINICAL HISTORY: fall. TECHNIQUE: 2D digital imaging was performed of the left wrist. Three images were obtained. PA, obl ique and lateral views were obtained. COMPARISON: CR,XR XR FOREARM LT from 04/26/2024 FINDINGS: BONES: No acute fracture is present. No bony destructive lesion is seen. JOINTS: The scapholunate distance is 4.1 mm. This raises a concern for ligament tear. SOFT TISSUE: Normal. IMPRESSION: 1. No acute fracture. 2. Widened scapholunate distance which may represent scapholunate ligament tear. Please correlate cl inically. MRI can be considered if clinically appropriate. DATA REPOSITORY: RADIATION DOSE DELIVERED:
--- NOTE | 2024-04-26 20:45 | DI.RAD_ITS ---
Exam(s) XR ELBOW LT COMP POST REDUC EXAM: XR ELBOW LT COMP POST REDUC CLINICAL HISTORY: Postreduction films. TECHNIQUE: 2D digital imaging was performed of the left elbow. Two images were obtained. AP and la teral views were obtained. COMPARISON: CR,XR XR ELBOW LT COMPLETE from 04/26/2024 FINDINGS: BONES: No acute fracture is present. No bony destructive lesion is seen. JOINTS: There has been successful reduction of the radiocapitellar joint. There is again seen a frac ture of the olecranon which is distracted by 2.8 cm. No joint effusion is seen. SOFT TISSUE: Normal. IMPRESSION: 1. Interval reduction of the elbow joint. 2. Persistently distracted fracture of the olecranon. DATA REPOSITORY: RADIATION DOSE DELIVERED:
[2024-04-26] MEDS: Propofol 200 MG/20 ML VIAL (20:49)
--- NOTE | 2024-04-26 20:49 | OCONE_ITS ---
Date of service: 04/26/24 Time of Service: 20:49 Assessment and Plan Assessment and plan (1) Fracture dislocation of left elbow joint: Status: Acute Assessment and plan: 64-year-old male with left elbow trans?olecranon fracture dislocation Highly alcohol intoxicated status post fall. No prior left elbow problems. Reports simple fall onto left elbow earlier today after 1 beer. EToh +195. Comfortable at rest. No complaints about the elbow. Obvious elbow deformity. No skin breakdown. Arm and forearm compartments soft. Easily palpable 2+ radial pulse. Brisk cap refill throughout. Readily demonstrates gross motor distally AIN, PIN, and ulnar nerves. Reviewed injury with intoxicated patient as best possible. Need for attempted reduction although likely to be unstable and unsuccessful. Will need definitive surgical management with elbow/trauma specialist. [facility] orthopedic surgery department has already been contacted. Reduction attempted under procedural sedation: The radiocapitellar joint could be reduced, the olecranon fracture remained widely displaced, but the radiocapitellar joint was highly unstable despite attempts in multiple positions of extension and flexion and pronation supination. Ultimately splinted shy of 90 degrees flexion in moderate pronation. Final mini C arm images did show reduced radiocapitellar joint with widely displaced olecranon fracture. Plain films pending. Reviewed with emergency room provider. If reduced, can likely be managed as outpatient in a timely manner. Nonweightbearing, splint for protection, elevation, serial neurovascular checks. If already re?dislocated, should probably be managed with surgery sooner than later. ER to communicate results of reduction procedure with [facility] to finalize appropriate care of this rare complex type elbow fracture dislocation. [facility] All Active Problems Fracture dislocation of left elbow joint (Acute 04/26/24) Femoral acetabular impingement (Acute) History of total left knee replacement (Acute 04/27/22) Medical History Biceps tendon tear Hyperlipidemia Surgical History Hx of elbow surgery Status post fracture of femur ~27 years ago Intramedullary shani Social History Smoking/Tobacco Use Status: Former Tobacco Use Quit Date: 07/12/80 Smoking risk assessment performed?: Yes Drug use: Occasionally Substance use type: marijuana Details: smokes pot couple days ago. Do you feel safe at home: Yes Do you feel safe in your relationship?: Yes Results Last Vital Signs Temp 98.1 F 04/26/24 16:38 Pulse 96 H 04/26/24 16:39 Resp 15 04/26/24 16:38 BP 132/96 H 04/26/24 16:39 Pulse Ox 93 04/26/24 16:40 Labs 04/26/24 19:24 04/26/24 19:24 Labs: Laboratory Results - last 24 hr 04/26/24 19:24 WBC 10.93 H RBC 4.70 Hgb 15.2 Hct 44.5 MCV 95 MCH 32.3 MCHC 34.2 RDW 11.3 L Plt Count 202 MPV 8.2 Immature Gran % 0.2 Neutrophils % 75.4 Lymphocytes % 17.6 Monocytes % 6.3 Eosinophils % 0.1 Basophils % 0.4 Nucleated RBC % 0.0 Absolute Neutrophils 8.24 H Absolute Lymphocytes 1.92 Absolute Monocytes 0.69 Absolute Eosinophils 0.01 Absolute Basophils 0.04 Sodium 140 Potassium 4.0 Chloride 105 Carbon Dioxide 23.3 Anion Gap 11.7 H BUN 8 Creatinine 1.0 Est GFR (CKD-EPI 2020) 85.10 Glucose 127 H Calcium 7.9 L Total Bilirubin 0.29 AST 30 ALT 25 Alkaline Phosphatase 68 Total Protein 8.0 Albumin 3.5 Ethyl Alcohol 195.1 H Procedures Orthopedic Joint Reduction Lt Elbow: Time out performed: Yes Side: left Joint reduction location: elbow Analgesia: procedural sedation Technique used: direct manipulation Post-reduction neuro exam: intact Post-reduction vascular exam: intact Post-reduction x-ray obtained: Yes Post-reduction x-ray results: reduced Splint applied: Yes Patient tolerated procedure: well Additional comments: CPT #76654
[2024-04-26] MEDS: Normal Saline Flush 10 ML SYR IVP (20:50)
--- NOTE | 2024-04-26 20:51 | NUR.NOTE ---
Patient set up for conscious sedation with reduction of left Elbow. Patient set up on Lumite Injector with ETCO2 and 2 liters on Oxygen for comfort and sedation NBP to cycle every 5 mins. patient recieved 80 mg of Propofol given by MD KASPER and Left Elbow reduced by Dr. Nino. imaging taken post reduction and splinting, pt tolerated well.
--- NOTE | 2024-04-26 20:54 | RESPIRATORY ---
Pt. placed on 5L/min NC through out conscious sedation procedure then RT titrated down to 2L/min NC post procedure. Maintained acceptable etCO2 and vital signs during procedure without respiratory complications.
--- NOTE | 2024-04-26 21:06 | DI.VRAD_ITS ---
PROCEDURE INFORMATION: Exam: FL Fluoroscopy, Up to 1 Hour Physician Time; Radiologist Not Present For Fluoroscopy Exam date and time: 04/26/2024 8:04 PM Age: 64 years old Clinical indication: Injury or trauma; Fall; Injury: Left elbow reduction TECHNIQUE: Imaging protocol: Fluoroscopy , up to 1 hour physician or other qualified health healthcare translator time. This radiologist did not supervise this procedure. Exam supervised by facility personnel. Report for radiation dosage reporting and documentation only. COMPARISON: No relevant prior studies available. RADIATION DOSE METRICS: Fluoroscopy time (seconds): 26 Number of fluoro spot images: 9 Reference air kerma (PATSY): 0.207 FINDINGS: Procedural imaging: Multiple images of the left elbow were performed during reduction of joint dislocation Notes: Fluoroscopy supervised by facility personnel. See also separate procedure report. IMPRESSION: Fluoroscopy dosage documentation. See also separate procedure notes. Dictated and Authenticated by: Balta Alicea MD. Ordering:DALE Ruggiero MD
--- NOTE | 2024-04-26 21:27 | DI.VRAD_ITS ---
PROCEDURE INFORMATION: Exam: XR Left Elbow Exam date and time: 04/26/2024 9:04 PM Age: 64 years old Clinical indication: Other: Post reduction; Additional info: Left elbow reduction TECHNIQUE: Imaging protocol: Radiologic exam of the left elbow. Views: 3 or more views. COMPARISON: CR XR ELBOW LT COMPLETE 04/26/2024 5:36 PM FINDINGS: Bones/joints: There has been interval reduction of the previously described elbow dislocation. There remains significantly distracted and displaced fracture of the olecranon with a gap of approximately 2.9 cm between the olecranon fragment and shaft of the. Osseous alignment otherwise appears normal. Soft tissues: Normal. IMPRESSION: Interval reduction of the elbow dislocation with a persistent significant displaced olecranon fracture Dictated and Authenticated by: Balta Alicea MD. Ordering:DALE Ruggiero MD
--- NOTE | 2024-04-26 21:30 | DI.VRAD_ITS ---
PROCEDURE INFORMATION: Exam: XR Left Wrist Exam date and time: 04/26/2024 9:09 PM Age: 64 years old Clinical indication: Other: Fall, elbow post reduction; Additional info: Left elbow reduction TECHNIQUE: Imaging protocol: Radiologic exam of the left wrist. Views: 3 or more views. COMPARISON: CR XR FOREARM LT 04/26/2024 5:33 PM FINDINGS: Bones/joints: There is widening of the scapholunate distance measuring approximately 4.5 mm. Osseous alignment otherwise appears. No fracture or significant arthritic change. Soft tissues: Normal. IMPRESSION: Widened scapholunate interval of 4.5 mm raising concern for scapholunate ligament injury. No acute fracture Dictated and Authenticated by: Balta Alicea MD. Ordering:DALE Ruggiero MD
--- NOTE | 2024-04-26 22:00 | DI.CT_ITS ---
Exam(s) CT UPPER EXTREMITY LT WO EXAM: CT UPPER EXTREMITY LT WO CLINICAL HISTORY: fracture eval. TECHNIQUE: Imaging Protocol: Axial computed tomography images with coronal and sagittal reformatted images were created and reviewed. COMPARISON: CR,XR XR ELBOW LT COMP POST REDUC from 04/26/2024 FINDINGS: Bones: There is a comminuted fracture of the olecranon. There is 2 cm of distraction of the fractur e. There is anterior subluxation of the distal ulnar component relative to the trochlea. No celluli tic or osteomyelitic changes are identified. There is no evidence of joint space narrowing or cystic degeneration seen. No lytic or sclerotic lesions are identified. Soft Tissues: There is soft tissue swelling present. There is a small amount of gas seen in the soft tissues posteriorly. IMPRESSION: 1. Fracture involving the likely non with 2 cm of distraction of the fracture. 2. Anterior subluxation of the distal ulnar component relative to the trochlea. RADIATION DOSE DELIVERED: Total DLP Total DLP DATA REPOSITORY: All CT scans at this facility are submitted to the National Radiology Data Registry (NRDR) Dose Index Registry (DIR) with the [employer] (A[employer]). RADIATION OPTIMIZATION: All CT scans at this facility use at least one of these dose optimization te chniques: automated exposure control; mA and/or kV adjustment per patient size (includes targeted exa ms where dose is matched to clinical indication); or iterative reconstruction.
--- NOTE | 2024-04-26 22:51 | DI.VRAD_ITS ---
PROCEDURE INFORMATION: Exam: CT Left Upper Extremity Without Contrast, Elbow Exam date and time: 04/26/2024 10:30 PM Age: 64 years old Clinical indication: Abnormal findings; Abnormal imaging study of the limbs; Fracture eval TECHNIQUE: Imaging protocol: Computed tomography of the left upper extremity without contrast. Exam focused on the elbow. COMPARISON: CR XR ELBOW LT COMP POST REDUC 04/26/2024 9:04 PM FINDINGS: Bones/joints: There is a comminuted fracture of the olecranon significant proximal distraction and moderate angulation of the major proximal fragments of the olecranon. There is anterior subluxation of the major distal fragment of the ulna with respect to the trochlea best visualized on series 6 reconstructed images. Of the distal humerus and proximal ulna appear intact. Soft tissues: Significant diffuse soft tissue swelling about the elbow. Small amount of gas noted in the posterolateral soft tissues. IMPRESSION: Comminuted and significantly distracted fracture of the proximal ulna as described. Moderate anterior subluxation of the major distal fragment of the ulna in relation to the trochlea Dictated and Authenticated by: Balta Alicea MD. Ordering:DALE Ruggiero MD
[2024-04-27] VITALS (12 sets, daily range): BP systolic 116–154; BP diastolic 77–91; PULSE 70–107; RESP 12–26; O2SAT 78–97
--- NOTE | 2024-04-27 00:50 | W.EDPROG ---
Date of service: 04/27/24 Time of Service: 00:51 Medical Decision Making Patient was signed out to me by my colleague Sundar Vero, please refer to his HPI, physical exam, assessment and plan. At time of signout we are pending recommendations by [facility] [place]. [facility] [place] has called us and I discussed the case with Dr. Mcrae, they recommend discharge with close follow-up. They will be contacting him Monday morning. They recommend the patient is n.p.o. starting at midnight on Monday evening for potential operative management. Patient was reassessed, pain well-controlled, he is neurovascularly intact on reassessment with no signs of vascular or neurologic compromise on repeat exam. Patient will be discharged. Discussed red flags for which to return. The patient is able to speak clearly. There is no demonstration of any slurring of speech. There is evidence of clear decision making capacity. Patient is able to ambulate well without any difficulty. There are no signs of ataxia or stumbling motions. I have extensively reviewed the treatment plan and discharge instructions with the patient. I have addressed all patient concerns at this time. The patient was made aware of what symptoms to monitor for that would warrant a return to the emergency department. Discussed the plan with the patient, they demonstrate verbal understanding and agreement with our assessment and plan at this time. The documentation in this chart was dictated using [employer] dictation software. Please excuse any dictation errors. FINDINGS: Bones/joints: There is a comminuted fracture of the olecranon significant proximal distraction and moderate angulation of the major proximal fragments of the olecranon. There is anterior subluxation of the major distal fragment of the ulna with respect to the trochlea best visualized on series 6 reconstructed images. Of the distal humerus and proximal ulna appear intact. Soft tissues: Significant diffuse soft tissue swelling about the elbow. Small amount of gas noted in the posterolateral soft tissues. IMPRESSION: Comminuted and significantly distracted fracture of the proximal ulna as described. Moderate anterior subluxation of the major distal fragment of the ulna in relation to the trochlea Thank you for allowing us to participate in the care of your patient. Dictated and Authenticated by: Balta Alicea MD 04/26/2024 10:51 PM Eastern Time ([place] & [place]) Quality:SDOH Health Related Social Needs: No Data to Display Sign Out Sign Out Data: Sign Out Comment: Patient pending disposition by orthopedic group at [facility] for discussion of timing of surgical intervention for unstable left elbow fracture. Last updated by Bahman Pham NP at 04/27/24 00:31 Discharge Plan Disposition Patient Disposition: Home Condition: Good Discharge Details Chief Complaint: Orthopedic Clinical Impression: Fracture dislocation of left elbow joint Primary Care Provider: Aung Ness ED Provider: Bahman Pham Home Meds and New Rx's Prescriptions: No Action gabapentin 300 mg capsule 300 mg PO QHS Qty: 30 1RF phytonadione (vitamin K1) 5 mg tablet 5 mg PO DAILY milk thistle 150 mg capsule 300 mg PO DAILY Rx Instructions: give with meal/snack cholecalciferol (vitamin D3) 10 mcg (400 unit) capsule 10 mcg PO DAILY magnesium oxide 400 mg magnesium capsule 400 mg PO DAILY turmeric 400 mg capsule 400 mg PO DAILY glucosamine-chondroitin 900 mg tablet 900 mg PO DAILY omega 3-ikj-fkg-fish oil 300-1,000 mg capsule 1 cap PO DAILY vitamin B complex [B Complex-Vitamin B12] Tablet 1 tab PO DAILY lidocaine [Lidocaine Pain Relief] 4 % Adhesive Patch,Medicated 1 patch TOPICAL DIRECTED melatonin 12 mg Tablet,Disintegrating 12 mg PO HS aspirin 81 mg tablet,delayed release (DR/EC) 81 mg PO BID Qty: 60 0RF acetaminophen 500 mg tablet 1,000 mg PO Q8H PRN (Reason: pain) Qty: 90 3RF Discharge Instructions Instructions: Elbow Fracture, Adult ED Additional Instructions: At this time you do have a fracture in your elbow that does still require operative management. [facility] [place] will be contacting you Monday for potential surgery. Please do not eat or drink anything after midnight on Monday evening for the potential Monday surgical option. Please take Tylenol and Motrin as needed for pain. If you notice any worsening of your symptoms, or any new symptoms such as viselike sensation in your arm, change in color for your fingers or hands, numbness or tingling in your fingers or hand, vomiting, diarrhea, fever, chills, shortness of breath, chest pain, numbness, weakness, or fainting , please return immediately to the emergency department for reevaluation. Please follow up with your primary care provider as soon as possible for reassessment and reevaluation. As always, it was a pleasure participating in your medical care today. Referrals: Aung Ness [Primary Care Provider] -
== END 2024-04-27 01:32 | disposition home or self-care (01) ==
LOC: ER 04-27 01:25 → RED 04-27 01:33
PROVIDERS: Nurse Practitioner Family; Emergency Provider Emergency Medicine; PCP Student in an Organized Health Care Education/Training Program
DX: S52.022A Displaced fracture of olecranon process without intraarticular extension of left ulna, initial encounter for closed fracture (principal); F10.120 Alcohol abuse with intoxication, uncomplicated; Y90.6 Blood alcohol level of 120-199 mg/100 ml; Z87.891 Personal history of nicotine dependence; W01.0XXA Fall on same level from slipping, tripping and stumbling without subsequent striking against object, initial encounter; Y93.01 Activity, walking, marching and hiking; Y92.017 Garden or yard in single-family (private) house as the place of occurrence of the external cause
CPT/HCPCS: 00123; 24675; 73080; 76000; 80053; 96361; 96374; 96375; 99285; 70450; 72125; 73090; 73110; 73200; 80320; 85025; J1170; J1885; J2704

== ENCOUNTER 2025-04-19 13:50 | Emergency (ER) | payer OTHER, SELFPAY ==
[2025-04-19 13:54] VITALS: BP 148/97; PULSE 103; RESP 20; TEMP 36.6; O2SAT 96
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
== END 2025-04-19 15:35 | disposition home or self-care (01) ==
PROVIDERS: Emergency Provider Physician Assistant; PCP Student in an Organized Health Care Education/Training Program
DX: F10.20 Alcohol dependence, uncomplicated (principal); I10 Essential (primary) hypertension
CPT/HCPCS: 99283; 99282

== ENCOUNTER 2025-04-19 21:19 | Emergency (ER) | payer OTHER, SELFPAY ==
[2025-04-19 21:24] VITALS: BP 156/91; PULSE 83; RESP 18; TEMP 36.7; O2SAT 97
--- NOTE | 2025-04-19 22:15 | W.ED.GENAD ---
Discharge Plan Disposition Patient Disposition: Home Discharge Details Clinical Impression: Alcohol dependence Primary Care Provider: Aung Ness ED Provider: Helen Badillo Home Meds and New Rx's Prescriptions: No Action gabapentin 300 mg capsule 300 mg PO QHS Qty: 30 1RF phytonadione (vitamin K1) 5 mg tablet 5 mg PO DAILY milk thistle 150 mg capsule 300 mg PO DAILY Rx Instructions: give with meal/snack cholecalciferol (vitamin D3) 10 mcg (400 unit) capsule 10 mcg PO DAILY magnesium oxide 400 mg magnesium capsule 400 mg PO DAILY turmeric 400 mg capsule 400 mg PO DAILY glucosamine-chondroitin 900 mg tablet 900 mg PO DAILY omega 6-yhg-jdc-fish oil 300-1,000 mg capsule 1 cap PO DAILY vitamin B complex [B Complex-Vitamin B12] Tablet 1 tab PO DAILY lidocaine [Lidocaine Pain Relief] 4 % Adhesive Patch,Medicated 1 patch TOPICAL DIRECTED melatonin 12 mg Tablet,Disintegrating 20 mg PO HS aspirin 81 mg tablet,delayed release (DR/EC) 81 mg PO BID Qty: 60 0RF acetaminophen 500 mg tablet 1,000 mg PO Q8H PRN (Reason: pain) Qty: 90 3RF Discharge Instructions Additional Instructions: Please follow-up with your primary care provider as scheduled on the to discuss your alcohol use and to request a referral to a counselor You met with Duy today. Please follow-up tomorrow as discussed, including attending the meeting and engaging in 12-step fellowship. Follow-up with [facility] and community based services/resources as discussed Return to emergency care if you have any thoughts of hurting yourself or anyone else or if you are very worried and need to be rechecked again immediately Referrals: [facility] [Outside] Aung Ness [Primary Care Provider, Medicine] HPI General Date/Time Provider Initiated Documentation: 04/19/25 21:20. HPI Narrative: Manoj is a 65-year-old male with history of alcohol dependence and hyperlipidemia who presents to the emergency department for alcohol abuse. He was seen here earlier today, met with Marbella at [facility] and was discharged home. He had a fireball shot and 2 beers after leaving here. Says that drinking has caused stress in his relationship, says that his does not want a look at him. He tried calling [facility] this evening, but says that he was unable to get through because the phone was not working. He reports that he has been attending AA meetings daily for the last 20+ years, but sometimes he skips the meeting to drink some alcohol. He drinks every couple of days but not every day, usually mixes beer and hard liquor/shots. No history of alcohol withdrawal symptoms, even when he has not been drinking for couple of days. No history of DTs. Has been in rehab before, says he he is not interested in this. Says he has recently been in good health, denies recent fever/chills, congestion, sore throat, cough, chest pain, nausea/vomiting, change in p.o. intake, abdominal pain, change in bowel or bladder function. Says that his is concerned that he might have bipolar disorder, denies history of depression, self-harm, HI/SI, hallucinations. Occasionally feels road rage. He does have a PCP he can follow-up with. Since he is generally healthy, denies taking any medications at this time. Related Data Home Medications ?Medication ?Instructions ?Recorded ?Confirmed antiarthritic combination no.2 900 900 mg PO DAILY 01/05/22 04/19/25 mg tablet (glucosamine-chondroitin) cholecalciferol (vitamin D3) 10 10 mcg PO DAILY 01/05/22 04/19/25 mcg (400 unit) capsule magnesium oxide 400 mg PO DAILY 01/05/22 04/19/25 omega 9-ojg-qeq-fish oil 300 1 cap PO DAILY 01/05/22 04/19/25 mg-1,000 mg capsule turmeric 400 mg capsule 400 mg PO DAILY 01/05/22 04/19/25 vitamin B complex (B 1 tab PO DAILY 01/05/22 04/19/25 Complex-Vitamin B12 tablet) milk thistle 150 mg capsule 300 mg PO DAILY 01/12/22 04/19/25 phytonadione (vitamin K1) 5 mg 5 mg PO DAILY 01/12/22 04/19/25 tablet lidocaine 4 % topical patch 1 patch topical DIRECTED 04/26/22 04/19/25 (Lidocaine Pain Relief) melatonin 12 mg disintegrating 20 mg PO HS 04/27/22 04/19/25 tablet acetaminophen 500 mg tablet 1,000 mg (2 x 500 mg) PO Q8H PRN 04/28/22 04/19/25 pain #90 tabs aspirin 81 mg tablet,delayed 81 mg PO BID #60 tabs 04/28/22 04/19/25 release gabapentin 300 mg capsule 300 mg PO QHS #30 caps 07/19/22 04/19/25 Previous Rx's ?Medication ?Instructions ?Recorded acetaminophen 500 mg tablet 1,000 mg (2 x 500 mg) PO Q8H PRN 04/28/22 pain #90 tabs aspirin 81 mg tablet,delayed 81 mg PO BID #60 tabs 04/28/22 release gabapentin 300 mg capsule 300 mg PO QHS #30 caps 07/19/22 Allergies Allergy/AdvReac Type Severity Reaction Status Date / Time tramadol Allergy Skin Rash Verified 04/19/25 21:32 kiwi Allergy Unknown per Uncoded 04/19/25 21:32 pt.throat feels funny General Stated Complaint: ETOHWithdr JAY: 3 Exam Narrative Exam Narrative: General Appearance: Normal. Patient is alert and oriented, no acute distress Vital signs: Hypertension noted, BP 156/91, otherwise unremarkable Respiratory: Easy work of breathing, able to speak in full sentences Skin: Warm and dry, no rash. Neurologic: normal gait, normal heel toe Psychiatric: Very talkative, does not express any suicidal or homicidal ideation. Course Vital Signs Vital signs: Vital Signs Temperature 36.7 C 04/19/25 21:24 Pulse 83 04/19/25 21:24 Respiratory Rate 18 04/19/25 21:24 Blood Pressure 156/91 H 04/19/25 21:24 Pulse Oximetry 97 04/19/25 21:24 Temperature 36.7 C 04/19/25 21:24 Temperature Source Oral 04/19/25 21:24 Pulse 83 04/19/25 21:24 Respiratory Rate 18 04/19/25 21:24 Respiratory Pattern Normal 04/19/25 21:28 Blood Pressure 156/91 H 04/19/25 21:24 Pulse Oximetry 97 04/19/25 21:24 Oxygen Delivery Method Room Air 04/19/25 21:24 Oxygen Flow Rate 0 04/19/25 21:24 Pain Level 0 04/19/25 21:24 Medical Decision Making Initial Assessment: 65-year-old male with history of alcohol use. Overall very well-appearing, no concerns for acute illness requiring diagnostic imaging or blood work at this time. Patient appears clinically sober at this time, last drink at 2 PM ED Course: - Discussed alcohol consumption: 3 shots of vodka and 2 beers today. - Reviewed AA attendance - Duy at [facility] met with patient, they discussed resources. Plan tomorrow to meet up at a 12-step. They have a chatters phone numbers, Duy will check in in the morning Clinical Impression: - Alcohol abuse Disposition: - Discharge home, recommend close follow-up with [facility] and PCP - [facility] Marbella and Duy - Follow up with PCP; referral to counseling may be beneficial - Continue AA meetings, incuding tmrw morning - Engage more actively with recovery community. Patient consented to the use of JANESSA PFSH All Active Problems Alcohol dependence (Acute) Fracture dislocation of left elbow joint (Acute 04/26/24) Femoral acetabular impingement (Acute) History of total left knee replacement (Acute 04/27/22) Medical History Biceps tendon tear Hyperlipidemia Surgical History Hx of elbow surgery Status post fracture of femur ~27 years ago Intramedullary shani Social History Smoking/Tobacco Use Status: Former Tobacco Use Quit Date: 07/12/80 Smoking risk assessment performed?: Yes Alcohol Intake: current Alcohol Intake frequency: 0-2 drinks per day Alcohol type: beer Drug use: Never Substance use type: marijuana Details: smokes pot couple days ago. Housing: house Do you feel safe at home: Yes Do you feel safe in your relationship?: Yes PAWSS Have you Been Recently Intoxicated or Drunk Within the Last 30 days?: Yes Have you Ever Experienced Previous Episodes of Alcohol Withdrawal?: Yes Have you ever Experienced Withdrawal Seizures?: No Have you ever Experienced Delirium Tremens(DT)s?: No Have you ever undergone Alcohol Rehabilitation Treatment (i.e, inpt ot outpatient treatment programs)?: Yes Have you ever Experienced Blackouts?: No Have you ever Combined Alcohol with other Downers within the last 90 days?: No Have you ever Combined Alcohol with any other Substance of Abuse during the last 90 days?: No Positive Blood Alcohol level on Presentation? [PCS.BAL]: Unable to Obtain Evidence of Increased Autonomic Activity (i.e. HR>120, tremor, sweating, agitation, nausea)?: No Result: 3
[2025-04-19 23:25] VITALS: PULSE 75; RESP 18; O2SAT 97
== END 2025-04-19 23:26 | disposition home or self-care (01) ==
PROVIDERS: Emergency Provider Nurse Practitioner Family; PCP Student in an Organized Health Care Education/Training Program
DX: F10.20 Alcohol dependence, uncomplicated (principal); R03.0 Elevated blood-pressure reading, without diagnosis of hypertension
CPT/HCPCS: 99283; 99282